=== PATIENT | female | born 1995 | race Caucasian/White ===

== ENCOUNTER 2017-11-03 19:13 | Emergency (ER) | payer SELFPAY ==
[2017-11-03 19:19] VITALS: BP 126/79; PULSE 85; RESP 16; TEMP 36.6; O2SAT 98
--- NOTE | 2017-11-03 19:49 | ED.GENADUL_ITS ---
Disposition Clinical Impression: Migraine headache Disposition: HOME Condition: Improving Instructions: Migraine Headache (ED) Additional Instructions: Feel free to return to the emergency department for any new or significant worsening of symptoms. This may include fever, neurological changes, severe headache or change in your conditions that differ from your typical migraine headaches. It may be helpful to keep a headache journal and track foods that you H prior to headache or activities that you are performing that preceded the onset of your migraines. Referrals: NONE,NONE [Primary Care Provider] - (Care management will assist in establishing a primary care provider for you to follow-up with in the next 1-2 weeks for recheck of your migraine headaches and further care.) Medical Decision Making - Medical Decision Making Patient presenting to the emergency department for chief complaint of migraine headache. Patient has taken her normal abortive medication which was not effective this evening. Patient denies any change or difference in pattern from previous migraine headaches. Patient denies any fever chills, or cold- like symptoms associated with her headache. Patient has no findings to suggest meningitis, cavernous sinus thrombosis, and does not state worst headache of her life so doubt subarachnoid hemorrhage. Given that this is patient's typical migraine pattern I feel that symptomatic treatment alone is sufficient and that labs or imaging is not required at this time. Patient given 1 L normal saline, ketorolac, Compazine and Benadryl. Plan to reassess after treatment. After patient received medication and fluids she stated that her symptoms had improved but not fully resolved. Patient did state that she still did have a mild headache but felt like she would rather go home and rest. Given that patient has no new or worsening symptoms and otherwise has her typical migraine headache I feel that this is appropriate. Patient did state that she did not have a primary care provider and so she was placed upon the list for a primary care follow-up and PCP establishment in the next 1-2 weeks. Patient was encouraged to keep a headache journal to see if there are any triggers causing her weekly headaches. Patient encouraged to return for any new or worsening condition. After discussion of diagnosis and plan of care with patient patient agreed and stated no further needs, questions, or concerns at this time. History of Present Illness - General Chief complaint: Headache Stated complaint: MIGRAINE Time Seen by Provider: 11/03/17 19:16 Source: patient, RN notes reviewed, old records reviewed Mode of arrival: ambulatory Limitations: no limitations - History of Present Illness Initial comments: Patient reports earlier this morning she woke up having a migraine headache. She took some of her Excedrin Migraine headache medication which helped relieve her symptoms. Then throughout the course the day her headache has returned and worsened. She states some phono and photophobia and sharp stabbing type sensations on the right side of her face which she describes as typical of her normal migraine headaches that she gets on a weekly basis. Patient states some nausea but denies any vomiting, patient denies fever, vision changes, neurological deficits. Onset/Timin -: hour(s) Location: head Severity scale (1-10): 6 Quality: sharp Consistency: constant Improves with: none Worsens with: none Associated Symptoms: denies other symptoms Treatments Prior to Arrival: other (Excedrin Migraine around 4:30 PM) - Related Data Acetaminophen [Tylenol] 650 mg PO Q4H PRN PRN tab 10/05/15 Ibuprofen [Motrin] 600 mg PO Q6H PRN PRN #60 tab 10/05/15 Allergies Allergy/AdvReac Type Severity Reaction Status Date / Time cinnamon [Cinnamon] Allergy Severe Anaphylaxsi Unverified 11/03/17 19:26 s latex Allergy Severe RASH ALL Unverified 11/03/17 19:26 OVER BODY Review of Systems Constitutional: denies: chills, fever, malaise Eyes: as per HPI, other (Photophobia). denies: vision change ENT: as per HPI, other (Phonophobia). denies: throat pain, congestion Respiratory: denies: cough, shortness of breath Cardiovascular: denies: chest pain, palpitations, syncope Musculoskeletal: denies: joint swelling Skin: denies: rash Neurological: headache. denies: weakness, numbness, paresthesias, confusion, abnormal gait Past Medical History - Past Medical History Medical history: GERD uti Surgical history: no surgical history LMP comments: current. denies: - Social History Smoking status: never smoker Alcohol use: none Drug use: none General Exam - General Limitations: no limitations General appearance: alert, in no apparent distress - Head Head exam: Present: atraumatic, normocephalic, normal inspection - Eye Eye exam: Present: normal apperance, PERRL, EOMI. Absent: scleral icterus, conjunctival injection, nystagmus, periorbital swelling Pupils: Present: normal accommodation - ENT ENT exam: Present: normal orophraynx, mucous membranes moist, TM's normal bilaterally, normal external ear exam - Neck Neck exam: Present: normal inspection, full ROM. Absent: meningismus, lymphadenopathy - Respiratory Respiratory exam: Present: normal lung sounds bilaterally, respiratory distress. Absent: wheezes, rales, rhonchi, stridor - Cardiovascular Cardiovascular Exam: Present: regular rate, normal rhythm, normal heart sounds - Neurological Exam Neurological exam: Present: alert, oriented X3, CN II-XII intact, normal gait. Absent: altered, motor sensory deficit - Skin Skin exam: Present: warm, dry. Absent: cyanosis, diaphoretic, pallor, mottled Course Vital Signs - 24 hr 11/03/18 19:19 Temperature 36.6 C Pulse 85 Respiratory 16 Rate Blood Pressure 126/79 Pulse Oximetry 98
[2017-11-03] MEDS: Normal Saline 1,000 ML 1000 ML IV (19:54)
[2017-11-03] MEDS: Ketorolac 30 MG/ML VIAL IVP (19:55)
[2017-11-03] MEDS: Prochlorperazine 10 MG/2 ML VIAL IVP (19:55)
[2017-11-03] MEDS: diphenhydrAMINE 50 MG/ML VIAL 25 MG IVP (19:56)
[2017-11-03] MEDS: Normal Saline Flush 10 ML SYR IVP (19:57)
[2017-11-03] MEDS: Normal Saline 50 ML (19:57)
[2017-11-03 21:02] VITALS: BP 107/75; PULSE 72; RESP 16; O2SAT 98
--- NOTE | 2017-11-04 11:36 | PDOC.ERCMPRO ---
Care Management Progress Note 11/04-Alirio MACHINE FUR CLEANER requested assistance with a PCP f/u in 1-2 weeks for recurrent migraines. This CM had tried to set up Gypsy with Fadi Mendez at [facility] on 07/21/17 but Gypsy did not respond to the voice mail that [facility] left for her. It also shows on record that back in 2014 she might of been a patient of Dr. Graham'celine at [facility]. This CM called Gypsy and could not leave a message as her voice mail is full.
--- NOTE | 2017-11-04 11:40 | CMPROGNOTE_ITS ---
Care Management Progress Note 11/04-Alirio CORROSION ENGINEER requested assistance with a PCP f/u in 1-2 weeks for recurrent migraines. This CM had tried to set up Gypsy with Fadi Mendez at [facility] on 07/21/17 but Gypsy did not respond to the voice mail that [facility] left for her. It also shows on record that back in 2014 she might of been a patient of Dr. Graham 'celine at [facility]. This CM called Gypsy and could not leave a message as her voice mail is full.
== END 2017-11-03 21:01 | disposition home or self-care (01) ==
PROVIDERS: Emergency Provider Physician Assistant
DX: G43.909 Migraine, unspecified, not intractable, without status migrainosus (principal)
CPT/HCPCS: 96361; 96374; 96375; 99284; J0780; J1200; J1885

== ENCOUNTER 2018-05-04 20:32 | Emergency (ER) | payer SELFPAY ==
[2018-05-04 20:43] VITALS: BP 119/76; PULSE 112; RESP 16; TEMP 36.9; O2SAT 100
[2018-05-04] MEDS: Ondansetron O.D.T. 4 MG TABEF PO (21:03)
--- NOTE | 2018-05-04 21:03 | ED.GENADUL_ITS ---
Discharge Plan Disposition Patient Disposition: HOME Condition: Stable Discharge Details Chief Complaint: Abd Prob Clinical Impression: Nausea and vomiting during Primary Care Provider: None,None ED Provider: Jarod Wyman Home Meds and New Rx's Prescriptions: New ondansetron 4 mg tablet,disintegrating 4 mg PO QID PRN (Reason: nausea and vomiting) Qty: 30 RF: 0 Continued Plus (calcium carb) 27 mg iron- 1 mg tablet 1 tab PO DAILY Qty: 90 RF: 2 acetaminophen [Tylenol] 325 MG tablet 650 mg PO Q4H PRN PRNRF: 0 Discharge Instructions Instructions: Acute Nausea and Vomiting (ED) Additional Instructions: if symptoms continue next week see your primary care provider or obgyn provider if you feel you are having persistent vomit despite the medication or severe abdominal pain return to the emergency department Stand Alone Forms: Work Release Medical Decision Making 22 yo female at 8 weeks per pt who comes in with cc of n/v for 5 days and doesn't feel she can go to work due to this. She has had loose stools as well. Denies recent travel or foods. Denies abdominal pain, vaginal bleedding or d/c. She has no abdominal tenderness on exam or distention and so doubt sbo or other surgical pathology and do not feel imaging indicated. She appears well hydrated so do not feel IVF or lab work indicated at this time. I disucssed risks vs benefits of zofran and she would prefer to have zofran to use as needed. She will f/u with her obgyn and return precautions given Differential Diagnosis hyperemesis, gastroenteritis HPI General Mode of arrival: ambulatory . Date/Time Provider Initiated Documentation: 05/04/18 20:33 . Limitations to Documentation: no limitations . Information obtained by: patient . History of Present Illness 22 year old F presents to the emergency department with the chief complaint of nausea and vomit, described as moderate, Patient reports no radiation. Patient started experiencing this day(s) (5) and it has been constant. No relieving factors improve symptom(s), No exacerbating factors reported . Patient notes other (diarrhea). Patient did receive the following treatments prior to arrival, none Related Data Home Medications Medication Instructions Recorded Confirmed acetaminophen [Tylenol] 650 mg PO Q4H PRN PRN tab 10/05/15 05/04/18 vitamin with calcium 1 tab PO DAILY #90 tab 04/25/18 05/04/18 no.72-iron 27 mg-folic acid 1 mg tablet ondansetron 4 mg PO QID PRN #30 tab 05/04/18 Previous Rx's Medication Instructions Recorded acetaminophen [Tylenol] 650 mg PO Q4H PRN PRN tab 10/05/15 vitamin with calcium 1 tab PO DAILY #90 tab 04/25/18 no.72-iron 27 mg-folic acid 1 mg tablet ondansetron 4 mg PO QID PRN #30 tab 05/04/18 Allergies Allergy/AdvReac Type Severity Reaction Status Date / Time cinnamon [Cinnamon] Allergy Severe Anaphylaxsi Unverified 05/04/18 20:55 s latex Allergy Severe RASH ALL Unverified 05/04/18 20:55 OVER BODY Review of Systems Review of Systems All systems reviewed & are unremarkable except as noted in HPI and below Constitutional Denies chills and Denies fever(s) Cardiovascular Denies chest pain and Denies dyspnea Respiratory Denies cough and Denies dyspnea Gastrointestinal Denies abdominal pain Genitourinary Denies dysuria Musculoskeletal Denies joint swelling Integumentary/Breasts Denies rash Psychiatric Denies depression PFSH Medical History Hx: UTI (urinary tract infection) Pyelonephritis Family History Other Bipolar disorder Mother Mental disorder Father Diabetes Other Multiple endocrine neoplasia (MEN) type II Social History Smoking and Tabacco status: Never Exam Const General: no acute distress Orientation: alert HENMT Head: normal to inspection Ears: external ears normal General nose exam: external nose normal Mouth: moist mucous membranes Eyes General: appearance normal, both eyes and all related structures Neck Neck: normal visual inspection Resp Effort & Inspection: normal respiratory effort and able to speak in complete sentences Cardio Rate: regular rate GI Inspection: normal to inspection and no abdominal wall ecchymosis Skin General skin exam: no rashes or lesions noted Neuro General: alert and oriented x3 Extrem General: normal to inspection Psych Mental Status: mental status grossly normal
== END 2018-05-04 21:10 | disposition home or self-care (01) ==
PROVIDERS: Emergency Provider Emergency Medicine
DX: O21.9 Vomiting of pregnancy, unspecified (principal); Z3A.08 8 weeks gestation of pregnancy
CPT/HCPCS: 99283

== ENCOUNTER 2018-05-24 16:30 | Outpatient (REF) | payer SELFPAY ==
--- NOTE | 2018-05-24 15:10 | PAPFT_PTH ---
PATIENT: Gypsy Garcia LOC: [facility] U#:[id number] AGE/SX: 22/F ROOM: RE05/24/[address]: Asaf Castro RN : 1995 BED: DIS: 05/24/2018 SPEC #: [id number] RECD: 05/25/18 12:44 STATUS: JOANNE RELj #: [id number] RADHA: 05/24/18 15:[address]: Asaf Castro DEPT: [facility] Cytology RECD BY: Patricia Davidson ENTERED: 05/25/18 12:45 SP TYPE: PAPFT OTHR DR: None Tissues: 1 - CX/ENDOCX FOR PAP SMEARS Procedures: PAP THIN PREP/UVM Screening HPV DNA PROBE Comments: [id number]
[2018-05-25 10:51] LABS: *AMPHETAMINES SCREEN URINE Negative (Negative); *BARBITURATES SCREEN URINE Negative (Negative); *BENZODIAZEPINES SCREEN URINE Negative (Negative); Cannabinoids THC Negative (Negative); Cocaine Screen,Urine Negative (Negative); METHADONE URINE SCREEN Negative (Negative); OPIATES URINE SCREEN Negative (Negative)
[2018-05-25 10:54] LABS: Tricyclic Antidepressants Negative (Negative)
[2018-05-26 13:44] LABS: GC Result Negative; Specimen Description CERVIX
[2018-05-26 14:22] LABS: Chlamydia Result Positive
[2018-05-29 13:22] LABS: Buprenorphine Negative; Norbuprenorphine Negative
== END 2018-05-24 16:50 ==
LOC: LBN 16:30
PROVIDERS: Visit Provider Advanced Practice Midwife
DX: Z34.91 Encounter for supervision of normal pregnancy, unspecified, first trimester (principal); Z11.3 Encounter for screening for infections with a predominantly sexual mode of transmission; Z12.4 Encounter for screening for malignant neoplasm of cervix
CPT/HCPCS: 80307; 87491; 87591; 88142; 87086; 87624

== ENCOUNTER 2018-08-17 14:04 | Outpatient (REF) | payer SELFPAY ==
[2018-08-18 13:46] LABS: Chlamydia Result Negative; Specimen Description URINE
== END 2018-08-17 14:24 ==
LOC: LBN 14:04
PROVIDERS: Visit Provider Advanced Practice Midwife
DX: Z34.90 Encounter for supervision of normal pregnancy, unspecified, unspecified trimester (principal); Z11.3 Encounter for screening for infections with a predominantly sexual mode of transmission
CPT/HCPCS: 87491

== ENCOUNTER 2018-08-17 15:50 | Outpatient (CLI) | payer SELFPAY ==
[2018-08-17 16:31] LABS: Abs Immature Grans 0.06 k/cumm (0.0-0.09); Absolute Basophil Count 0.01 k/cumm (0.0-0.2); Absolute Lymphocyte Count 2.31 k/cumm (1.2-3.4); Absolute Monocyte Count 0.85 k/cumm (0.11-0.7); Absolute Neutrophil Count 10.68 k/cumm (1.2-6.7); Basophils % 0.1; Eosinophils % 0.6; HCT 36.4 % (36.0-46.0); HGB 12.3 g/dL (12.0-15.5); Immature Grans % 0.4; Lymphocytes % 16.5; Mean Corp. HGB Concentration 33.8 g/dL (32.0-36.0); Mean Corpuscular Hemoglobin 29.6 pg (27.0-33.0); Mean Corpuscular Volume 87.5 fL (80-95); Mean Platelet Volume 11.2 fL (8.0-11.0); Monocytes % 6.1; Neutrophils % 76.3; Platelet Count 239 x1000/uL (130-400); RBC 4.16 m/cumm (4.00-5.20); RBC Distribution Width 13.4 % (11.7-14.6)
[2018-08-17 16:35] LABS: Absolute Eosinophil Count 0.08 k/cumm (0.0-0.7)
[2018-08-17 16:48] LABS: Glucose,1 Hr (Glucola) 102 mg/dL (80-140)
[2018-08-21 10:07] LABS: HIV-1/2 Ag & Ab Screen Negative (NEGAT)
[2018-08-21 10:08] LABS: Hepatitis C Ab w Rflx HCV PCR Negative (NEGAT)
[2018-08-21 10:19] LABS: Hepatitis B Surface Ag Negative (NEGAT)
[2018-08-21 11:21] LABS: Syphilis Serology (RPR) Negative (Negative); Varicella IgG Antibody Positive
[2018-08-21 13:36] LABS: Rubella IgG Ab (UVM) Negative
== END 2018-08-17 16:10 ==
PROVIDERS: Visit Provider Advanced Practice Midwife
DX: Z34.91 Encounter for supervision of normal pregnancy, unspecified, first trimester (principal); Z11.4 Encounter for screening for human immunodeficiency virus [HIV]; Z11.59 Encounter for screening for other viral diseases; Z01.84 Encounter for antibody response examination
CPT/HCPCS: 36415; 80055; 82950; 86787; 86803; 86850; 86900; 86901; 87340; 87389; 84443; 86592; 86762

== ENCOUNTER 2018-08-29 01:19 | Outpatient (CLI) | payer SELFPAY ==
--- NOTE | 2018-08-29 13:44 | DI.US_ITS ---
Predicted Gestational Age: Indication/History: SURVEY,Z34.90 23.3 Wks Range: 22.3 to 24.3 Prior US done on: Determined by: First US LMP History EDC by prior US: 12/23/18 For multiple gestations: Baby PLACENTA: Grade: 0-I Location: Anterior X Posterior PRESENTATION: RT LT X LOW LYING PREVIA Cephalic X Trans (Head RT LT ) Varied Breech BIOMETRY: Anatomy Identified: BPD: 60 mm 24.3 wks 4 chamber Heart X Heart Rate 162 BPM HC: 224 mm 24.3 wks LVOT X Post Fossa X AC: 195 mm 24.1 wks RVOT X Ventricles X FL: 43 mm 24 wks Stomach X Nose NS Bladder X Lips NS Cisterna Magna: 10 mm CI: 82 Kidneys X Palate NS Cerebellum: 2.51 mm 3 vessel cord X Spine X EFW: grms % Cord Insertion X NS= not seen Composite Age (US) 24.2 wks Many abnormalities cannot be diagnosed. A normal exam does not exclude congenital abnormality. EDC by US 12/17/18 Amniotic Fluid Index: Normal COMMENTS: RUQ: LUQ: RLQ: LLQ: Total: cm Biophysical Profile: Score 0/2 MOUNIKA (>2cm) Respirations (>30 sec) Body flexion/extension Extremity flexion/extension TOTAL SCORE OB ultrasound was performed utilizing second trimester protocol. biometry is consistent with a gestational age of 24 weeks 2 days and EDC of 12/17/18. Placenta is anterior with no evidence of placenta previa. There is visually a normal quantity of amniotic fluid. anomaly screen is within normal as per OB ultrasound worksheet. Please note that there was incomplete visualization of facial structures and the patient is scheduled to return 09/06 for additional scanning.
== END 2018-08-29 01:39 ==
PROVIDERS: Visit Provider Advanced Practice Midwife
DX: Z34.92 Encounter for supervision of normal pregnancy, unspecified, second trimester (principal)
CPT/HCPCS: 76805

== ENCOUNTER 2018-09-06 00:51 | Outpatient (CLI) | payer SELFPAY ==
--- NOTE | 2018-09-06 15:48 | DI.US_ITS ---
SYMPTOM/DIAGNOSIS: TO COMPLETE SURVEY, TO VISUALIZE FACIAL STRUCTURES. OB ULTRASOUND: Comparison is made with 29 August 2018 The fetus is in cephalic position. The placenta is anterior. The face was better visualized on today's exam, however, the palate was only partially visualized. The amount of amniotic fluid appears visually normal. IMPRESSION: No facial deformities are seen. Predicted Gestational Age: Indication/History: 24 +4 Wks Range: to Prior US done on: Determined by: First US LMP History EDC by prior US: 12/23/18 For multiple gestations: Baby PLACENTA: Grade: II Location: XX Anterior PRESENTATION: RT LT LOW LYING PREVIA Cephalic XX Trans (Head RT LT ) Varied Breech BIOMETRY: Anatomy Identified: BPD: mm wks 4 chamber Heart Heart Rate 155 BPM HC: mm wks LVOT Post Fossa AC: mm wks RVOT Ventricles FL: mm wks Stomach Nose XX Bladder Lips XX Cisterna Magna: mm CI: Kidneys Palate Cerebellum: mm 3 vessel cord Spine EFW: grms % Cord Insertion NS= not seen Composite Age (US) wks Many abnormalities cannot be diagnosed. A normal exam does not exclude congenital abnormality. EDC by US Amniotic Fluid Index: Oligo Normal Polyhydramnios COMMENTS: RUQ: LUQ: RLQ: LLQ: Total: cm Biophysical Profile: Score 0/2 MOUNIKA (>2cm) Respirations (>30 sec) Body flexion/extension Extremity flexion/extension TOTAL SCORE
== END 2018-09-06 01:11 ==
PROVIDERS: Visit Provider Advanced Practice Midwife
DX: Z34.92 Encounter for supervision of normal pregnancy, unspecified, second trimester (principal); Z36.2 Encounter for other antenatal screening follow-up
CPT/HCPCS: 76815

== ENCOUNTER 2018-09-16 14:41 | Observation (INO) | payer MEDICAID, SELFPAY ==
[2018-09-16] VITALS (28 sets, daily range): BP systolic 95–121; BP diastolic 50–78; PULSE 75–130; RESP 16–44; TEMP 37; O2SAT 96–98
--- NOTE | 2018-09-16 15:28 | ED.GENADUL_ITS ---
Discharge Plan Disposition Patient Disposition: [facility] INPATIENT Condition: Improving Discharge Details Chief Complaint: Dizzy/Sync Clinical Impression: Dehydration Admit Date/Time: 09/16/18 17:26 Admit Provider: Ambar Baker Attending Provider: Ambar Baker Primary Care Provider: None,None ED Provider: Gregoria Ambrocio Discharge Instructions Activity:: Activity as Tolerated Activity:: Activity as Tolerated Equipment/Supplies:: No Equipment Needed Diet:: Normal Diet Discharge Orders Discharge Orders: Discharge Order (Routine); Ordered 09/16/18 Ordered By: Ambar Baker Discharge Data Discharge Date/Time-TO BE ENTERED AT DEPARTURE: 09/16/18 17:35 Medical Decision Making <Rivera Arenas NP - Last Filed: 09/17/18 08:19> Patient presenting to the emergency department for chief complaint of dizziness when standing up. Patient is approximately 26 weeks and states that this is been occurring over the past week with worsening over the past couple days. 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 Patient does state some mild back pain but states that this is her norm. Patient denies any vaginal discharge, loss of fluids, pelvic or abdominal pain. Physical exam shows mild tachycardia, appropriate inspection of the abdomen for gestational age, positive movements, staff combat information center officer reporting heart tones in 150s, otherwise unremarkable exam. Concern for possible fluid shift, dehydration, possible UTI, or anemia. Plan to check labs, give IV fluids, perform orthostatic vital signs, and reassess. <ZACHARY Eugene - Last Filed: 09/19/18 08:20> Care was transitioned to myself from Alirio Arenas NP, with labs pending the patient endorsing lightheadedness with movement x1 week. Patient is 26 weeks gestation, G4, P2. Patient denies any abdominal pain, vaginal discharge. No cr amping. Reviewed the labs, patient does have a white count of 13 which is baseline at this time, hemoglobin is 11.3, patient does not appear to be dehydrated with. Does have trace leukocyte esterase in her urinalysis with few epithelial cells, negative effect. Consulted with Aayush Baker, with the midwifery service, and discussed the patient's concerns and course thus far this time. Patient is feeling improved after 1 L of fluids and believes this is associated with the heat. She reports that he typically makes her nauseated and she is been hydrating less than typical. States that he can also make her feel dizzy. Ambar recommended the patient be brought to the obstetrics unit for monitoring. heart rate at the time the patient first presented was in the 150s per EQUIPMENT PROCESSOR report. Discussed plan for monitoring, patient is in agreement. Patient brought to birthing center for continued monitoring HPI <Rivera Arenas NP - Last Filed: 09/17/18 08:19> General Mode of arrival: ambulatory . Date/Time Provider Initiated Documentation: 09/16/18 14:50 . Limitations to Documentation: no limitations . Information obtained by: patient . History of Present Illness 23 year old F presents to the emergency department with the chief complaint of dizziness with position change, and is localized to the head. Patient reports no radiation. Patient started experiencing this week(s) (1) and it has been other (with position change (laying to sitting, sitting to standing)). Rest improves symptom(s), Movement worsens symptoms . Patient notes no other symptoms.. Related Data Home Medications Medication Instructions Recorded Confirmed acetaminophen [Tylenol] 650 mg PO Q4H PRN PRN tab 10/05/15 09/16/18 vitamin with calcium 1 tab PO DAILY #90 tab 04/25/18 09/16/18 no.72-iron 27 mg-folic acid 1 mg tablet ondansetron 4 mg PO QID PRN #30 tab 05/04/18 09/16/18 Previous Rx's Medication Instructions Recorded acetaminophen [Tylenol] 650 mg PO Q4H PRN PRN tab 10/05/15 vitamin with calcium 1 tab PO DAILY #90 tab 04/25/18 no.72-iron 27 mg-folic acid 1 mg tablet ondansetron 4 mg PO QID PRN #30 tab 05/04/18 Allergies Allergy/AdvReac Type Severity Reaction Status Date / Time cinnamon [Cinnamon] Allergy Severe Anaphylaxsi Unverified 09/16/18 15:04 s latex Allergy Severe RASH ALL Unverified 09/16/18 15:04 OVER BODY General Stated Complaint: Dizzy/Sync ARELI: 2 Review of Systems <Rivera Arenas NP - Last Filed: 07/14/19 08:19> Constitutional Reports system reviewed and no additional complaints, except as docu, Denies fever(s), Reports headache(s) (per usual with heat) and Denies weakness ENT Reports headache(s) (per usual with heat) Comments: c/o weird feeling in ears with dizziness Cardiovascular Denies chest pain and Reports palpitations (only with dizziness) Gastrointestinal Reports diarrhea (a few times, normal reaction to hot weather) and Reports vomiting (per usual with ) Genitourinary Denies abnormal vaginal bleeding, Denies difficulty voiding, Denies dysuria and Denies vaginal discharge Musculoskeletal Reports back pain Neurologic Reports headache(s) (per usual with heat) and Denies weakness Endocrine Reports palpitations (only with dizziness) PFSH <Rivera Arenas NP - Last Filed: 09/17/18 08:19> Social History Smoking/Tobacco Use Status: Never Alcohol Intake: never Drug use: Never Substance use type: does not use Do you feel safe at home: Yes Do you feel safe in your relationship?: Yes Female Reproductive History Menstrual Age of Menarche: 13 Duration of menses: 3-5 days control method: other (nuva ring yet became lax with it) History History 2 4 Para 2 Hx # Term Pregnancies 2 Multiple births 0 Hx # Pregnancies 0 Ectopic pregnancies 0 AB induced 0 Hx Number of Living Children 2 AB spontaneous 1 Past Pregnancies Del. Date GA/Weeks # Outcome Route Wgt Sex Labor Lgth Anesthes ia Location Prov Complic 12/12/12 41 No Successful vaginal 4.479 kg Male 32 hrs regional 10/03/15 39 No Successful vaginal 3.827 kg Female [address] rashaad zhong 07/18/16 7 No Unsuccessful vaginal Delivery Date: 12/12/12 No notes to display Delivery Date: 10/03/15 On 05/24/18 @ 14:28 [facility] retained placenta, manual removal, w/ increased bleeding ? w/o pph, transfusion. Delivery Date: 07/18/16 On 05/24/18 @ 14:29 [facility]SAF [facility]NA w/o d&C completed at home w/o c/o. Exam <Rivera Arenas NP - Last Filed: 09/17/18 08:19> Const General: cooperative, healthy appearing, comfortable, no acute distress, well developed and well groomed Nutritional Appearance: average body habitus Orientation: alert and oriented x3 Resp Effort & Inspection: normal respiratory effort and able to speak in complete sentences Auscultation: clear to auscultation bilaterally Cardio Rate: tachycardic Rhythm: regular rhythm Heart Sounds: S1 normal, S2 normal, no click, no gallops, no murmurs and no rubs GI Inspection: normal to inspection and other (Gravid with appropriate size) Palpation: soft, not firm, no guarding and nontender Auscultation: normal bowel sounds Back/Spine/Pelvis Back: no CVA tenderness Skin General skin exam: no rashes or lesions noted Extrem General: normal capillary refill, no clubbing, cyanosis or edema and no pedal edema Course <Rivera Arenas NP - Last Filed: 09/17/18 08:19> Vital Signs Pulse 112 H 09/16/18 14:58 Respiratory Rate 22 09/16/18 14:58 Blood Pressure 116/78 09/16/18 14:58 Pulse Oximetry 97 09/16/18 14:58 Pulse 107 H 09/16/18 15:08 Respiratory Rate 20 09/16/18 15:06 Respiratory Effort 09/16/18 15:06 Respiratory Depth Normal 09/16/18 15:06 Blood Pressure 105/58 L 09/16/18 15:08 Blood Pressure Position Supine 09/16/18 14:58 Pulse Oximetry 97 09/16/18 14:58 Oxygen Delivery Method Room Air 09/16/18 14:58 Oxygen Flow Rate 0 09/16/18 14:58 Pain Level 3 09/16/18 14:58 Sign Out <Rivera Arenas NP - Last Filed: 09/17/18 08:19> Sign Out Data: Sign Out Comment: Patient signed out to ZACHARY Rodgers pending lab results, and reassessment after fluids for concern of dehydration versus anemia Last updated by iRvera Arenas NP at 09/16/18 16:00
[2018-09-16] MEDS: Normal Saline 1,000 ML 1000 ML IV (15:40)
[2018-09-16 15:47] LABS: Abs Immature Grans 0.06 k/cumm (0.0-0.09); Absolute Basophil Count 0.01 k/cumm (0.0-0.2); Absolute Eosinophil Count 0.01 k/cumm (0.0-0.7); Absolute Monocyte Count 0.86 k/cumm (0.11-0.7); Absolute Neutrophil Count 10.54 k/cumm (1.2-6.7); Basophils % 0.1; Eosinophils % 0.1; HCT 34.9 % (36.0-46.0); HGB 11.3 g/dL (12.0-15.5); Immature Grans % 0.4; Lymphocytes % 14.2; Mean Corp. HGB Concentration 32.4 g/dL (32.0-36.0); Mean Corpuscular Hemoglobin 27.5 pg (27.0-33.0); Mean Corpuscular Volume 84.9 fL (80-95); Mean Platelet Volume 10.8 fL (8.0-11.0); Monocytes % 6.4; Neutrophils % 78.8; Platelet Count 234 x1000/uL (130-400); RBC 4.11 m/cumm (4.00-5.20); RBC Distribution Width 13.3 % (11.7-14.6); White Blood Cell Count 13.38 k/cumm (4.4-10.8)
[2018-09-16 15:56] LABS: Bilirubin Negative (Negative); Blood Negative (Negative); Clarity Clear (Clear); Glucose Negative (Negative); Ketones Negative (Negative); Leukocyte Esterase Trace (Negative); Nitrite Negative (Negative); Urobilinogen 0.2 EU/dL (Up TO 0.2)
[2018-09-16 16:05] LABS: ALT 21 U/L (12-78); AST 15 U/L (15-37); Albumin 2.4 g/dL (3.4-5.0); Alkaline Phosphatase 94 U/L (46-116); BUN 8 mg/dL (7-18); Bilirubin, Total 0.2 mg/dL (0.2-1.0); CREATININE 0.51 mg/dL (0.55-1.02); Calcium 9.1 mg/dL (8.5-10.1); Chloride 103 mmol/L (98-107); Glucose 74 mg/dL (70-100); Potassium 3.6 mmol/L (3.5-5.1); Sodium 138 mmol/L (136-145); Total Protein 7.2 g/dL (6.4-8.2)
[2018-09-16 16:23] LABS: Bacteria Negative HPF (Negative); C & S Indicated? Yes; Casts Negative LPF (Negative); Crystals Negative HPF (Negative); Epithelial Cells Few HPF (Negative); Mucus Negative (Negative); RBC 0-2 (0-2); WBC 0-2 HPF (0-5)
== END 2018-09-16 18:30 | disposition home or self-care (01) ==
LOC: ER 16:57 → BCD 17:26 → OBS 18:05
PROVIDERS: Nurse Practitioner Family; Admitting Provider Advanced Practice Midwife; Emergency Provider Physician Assistant; Visit Provider Advanced Practice Midwife
DX: O26.892 Other specified pregnancy related conditions, second trimester (principal); E86.0 Dehydration; O09.32 Supervision of pregnancy with insufficient antenatal care, second trimester; Z3A.26 26 weeks gestation of pregnancy
CPT/HCPCS: 36415; 80053; 96360; 99285; 59025; 81003; 81015; 85025; 87086; 99284; G0378

== ENCOUNTER 2018-10-23 11:05 | Outpatient (CLI) | payer MEDICAID, SELFPAY ==
[2018-10-23 15:07] LABS: HCT 32.9 % (36.0-46.0); HGB 10.6 g/dL (12.0-15.5); Mean Corp. HGB Concentration 32.2 g/dL (32.0-36.0); Mean Corpuscular Hemoglobin 26.4 pg (27.0-33.0); Mean Platelet Volume 10.8 fL (8.0-11.0); Platelet Count 252 x1000/uL (130-400); RBC 4.01 m/cumm (4.00-5.20); RBC Distribution Width 14.4 % (11.7-14.6); White Blood Cell Count 13.86 k/cumm (4.4-10.8)
[2018-10-23 15:29] LABS: Glucose,1 Hr (Glucola) 125 mg/dL (80-140)
== END 2018-10-23 11:25 ==
PROVIDERS: Advanced Practice Midwife; Visit Provider Advanced Practice Midwife
DX: Z34.93 Encounter for supervision of normal pregnancy, unspecified, third trimester (principal)
CPT/HCPCS: 36415; 82950; 85027

== ENCOUNTER 2018-10-30 15:15 | Outpatient (CLI) | payer MEDICAID, SELFPAY ==
[2018-10-30 15:51] LABS: HCT 35.5 % (36.0-46.0); HGB 11.3 g/dL (12.0-15.5); Mean Corp. HGB Concentration 31.8 g/dL (32.0-36.0); Mean Corpuscular Hemoglobin 26.1 pg (27.0-33.0); Mean Platelet Volume 10.8 fL (8.0-11.0); Platelet Count 268 x1000/uL (130-400); RBC 4.33 m/cumm (4.00-5.20); RBC Distribution Width 14.9 % (11.7-14.6); White Blood Cell Count 12.18 k/cumm (4.4-10.8)
[2018-10-30 16:29] LABS: PROTEIN 17.9 mg/dL
[2018-10-30 16:35] LABS: COMMENT (LAB VIEW ONLY) 98.73 mg/dL; Prot/Crea Ur Ratio 0.18
[2018-10-30 16:53] LABS: ALT 25 U/L (14-59); AST 18 U/L (15-37); Albumin 2.4 g/dL (3.4-5.0); Alkaline Phosphatase 127 U/L (46-116); Anion Gap 11.1 mmol/L (3-11); BUN 7 mg/dL (7-18); Bilirubin, Total 0.3 mg/dL (0.2-1.0); CO2 23.9 mmol/L (21.0-32.0); CREATININE 0.61 mg/dL (0.55-1.02); Calcium 8.8 mg/dL (8.5-10.1); Chloride 103 mmol/L (98-107); Glucose 77 mg/dL (70-100); Potassium 4.1 mmol/L (3.5-5.1); Sodium 138 mmol/L (136-145); Total Protein 6.9 g/dL (6.4-8.2)
== END 2018-10-30 15:35 ==
PROVIDERS: Visit Provider Advanced Practice Midwife
DX: O14.93 Unspecified pre-eclampsia, third trimester
CPT/HCPCS: 36415; 80053; 85027; 82565; 84156; 84550

== ENCOUNTER 2018-12-05 10:37 | Outpatient (CLI) | payer MEDICAID, SELFPAY ==
[2018-12-05 11:07] LABS: Glucose,1 Hr (Glucola) 142 mg/dL (80-140)
== END 2018-12-05 10:57 ==
PROVIDERS: Visit Provider Advanced Practice Midwife
DX: Z34.93 Encounter for supervision of normal pregnancy, unspecified, third trimester (principal)
CPT/HCPCS: 36415; 82950

== ENCOUNTER 2018-12-05 12:24 | Outpatient (REF) | payer MEDICAID, SELFPAY ==
[2018-12-05 14:21] LABS: *AMPHETAMINES SCREEN URINE Negative (Negative); *BARBITURATES SCREEN URINE Negative (Negative); *BENZODIAZEPINES SCREEN URINE Negative (Negative); Cannabinoids THC Negative (Negative); Cocaine Screen,Urine Negative (Negative); METHADONE URINE SCREEN Negative (Negative); OPIATES URINE SCREEN Negative (Negative)
[2018-12-05 14:23] LABS: Tricyclic Antidepressants Negative (Negative)
[2018-12-06 13:57] LABS: Chlamydia Result Negative; Specimen Description URINE
== END 2018-12-05 12:44 ==
LOC: LBN 12:24
PROVIDERS: Visit Provider Advanced Practice Midwife
DX: Z34.93 Encounter for supervision of normal pregnancy, unspecified, third trimester (principal); Z36.85 Encounter for antenatal screening for Streptococcus B; Z11.3 Encounter for screening for infections with a predominantly sexual mode of transmission
CPT/HCPCS: 80307; 87491; 87081

== ENCOUNTER 2018-12-06 01:19 | Outpatient (CLI) | payer MEDICAID, SELFPAY ==
--- NOTE | 2018-12-06 09:40 | DI.US_ITS ---
EXAM: US OB MOUNIKA WEIGHT CLINICAL HISTORY: LGA fetus Z34.90 SUPERVISION NORMAL . TECHNIQUE: Ultrasound performed using standard protocol. COMPARISON: US OB f/u facial/lvot/rvot from 09/06/2018 FINDINGS: There is a single living intrauterine gestation. Estimated sonographic age is 38 weeks 3 days. This fetus is in the cephalic presentation. heart rate is 136 beats per minute. Amniotic fluid index is 15.8 cm. Visually the amniotic fluid appears within normal limits. The placenta is anterior without evidence of previa. Estimated weight is 3513 g. This is the 82 percentile. IMPRESSION: Single living intrauterine gestation. Estimated sonographic age is 38 weeks 3 days.
== END 2018-12-06 01:39 ==
PROVIDERS: Visit Provider Advanced Practice Midwife
DX: Z34.93 Encounter for supervision of normal pregnancy, unspecified, third trimester (principal)
CPT/HCPCS: 76816

== ENCOUNTER 2018-12-15 02:39 | Outpatient (CLI) | payer MEDICAID, SELFPAY ==
[2018-12-15 10:10] LABS: Glucose 1 Hour 160 mg/dL
[2018-12-15 13:08] LABS: Glucose 3 Hour 97 mg/dL
== END 2018-12-15 02:59 ==
PROVIDERS: Visit Provider Advanced Practice Midwife
DX: Z34.93 Encounter for supervision of normal pregnancy, unspecified, third trimester (principal)
CPT/HCPCS: 36410; 82951

== ENCOUNTER 2018-12-20 11:00 | Observation (INO) | payer MEDICAID, SELFPAY | END 2018-12-20 13:30 | disposition home or self-care (01) | LOC: OBS 13:14 | PROVIDERS: Admitting Provider Advanced Practice Midwife; Referring Provider Advanced Practice Midwife; Visit Provider Advanced Practice Midwife | DX: O9A.213 Injury, poisoning and certain other consequences of external causes complicating pregnancy, third trimester (principal); Z3A.39 39 weeks gestation of pregnancy; S39.91XA Unspecified injury of abdomen, initial encounter; W17.89XA Other fall from one level to another, initial encounter | CPT/HCPCS: G0378 ==

== ENCOUNTER 2018-12-26 21:38 | Inpatient (IN) | payer MEDICAID, SELFPAY ==
[2018-12-27 02:44] LABS: HCT 33.3 % (36.0-46.0); HGB 10.3 g/dL (12.0-15.5); Mean Corp. HGB Concentration 30.9 g/dL (32.0-36.0); Mean Corpuscular Hemoglobin 23.8 pg (27.0-33.0); Mean Corpuscular Volume 77.1 fL (80-95); Mean Platelet Volume 11.8 fL (8.0-11.0); Platelet Count 256 x1000/uL (130-400); RBC 4.32 m/cumm (4.00-5.20); RBC Distribution Width 17.5 % (11.7-14.6); White Blood Cell Count 13.76 k/cumm (4.4-10.8)
[2018-12-27] MEDS: FentaNYL/ROPIvacaine 2 mcg/ml and 0.1% 200 ML CADD Cassette EP (07:01)
[2018-12-27] MEDS: Lactated Ringers 1,000 ML 125 ML IV (13:31)
[2018-12-27] MEDS: Ibuprofen 600 MG TAB PO (21:09)
[2018-12-28] MEDS: Ibuprofen 600 MG TAB PO ×4 (04:55→21:10)
[2018-12-28 07:33] LABS: HCT 25.7 % (36.0-46.0); HGB 7.6 g/dL (12.0-15.5); Mean Corp. HGB Concentration 29.6 g/dL (32.0-36.0); Mean Corpuscular Hemoglobin 23.2 pg (27.0-33.0); Mean Corpuscular Volume 78.4 fL (80-95); Mean Platelet Volume 11.2 fL (8.0-11.0); Platelet Count 194 x1000/uL (130-400); RBC 3.28 m/cumm (4.00-5.20); RBC Distribution Width 17.5 % (11.7-14.6); White Blood Cell Count 13.38 k/cumm (4.4-10.8)
[2018-12-28] MEDS: Acetaminophen 325 MG TAB 650 MG PO ×3 (10:06→21:03)
[2018-12-28] MEDS: Measles, Mumps, & Rubella Vaccine 0.5 ML VIAL (15:06)
[2018-12-29] MEDS: Acetaminophen 325 MG TAB 650 MG PO ×2 (03:25→09:44)
[2018-12-29] MEDS: Ibuprofen 600 MG TAB PO ×2 (03:25→09:44)
[2018-12-29 09:15] LABS: HCT 27.6 % (36.0-46.0); HGB 8.3 g/dL (12.0-15.5); Mean Corp. HGB Concentration 30.1 g/dL (32.0-36.0); Mean Corpuscular Hemoglobin 23.7 pg (27.0-33.0); Mean Corpuscular Volume 78.9 fL (80-95); Mean Platelet Volume 10.3 fL (8.0-11.0); Platelet Count 223 x1000/uL (130-400); RBC Distribution Width 17.8 % (11.7-14.6); White Blood Cell Count 11.82 k/cumm (4.4-10.8)
== END 2018-12-29 11:35 | disposition home or self-care (01) | DRG 806 ==
PROVIDERS: Advanced Practice Midwife; Admitting Provider Advanced Practice Midwife; Visit Provider Advanced Practice Midwife
DX: O70.0 First degree perineal laceration during delivery (principal); O63.9 Long labor, unspecified; Z37.0 Single live birth; O62.1 Secondary uterine inertia; O73.1 Retained portions of placenta and membranes, without hemorrhage; O75.89 Other specified complications of labor and delivery; O99.62 Diseases of the digestive system complicating childbirth; Z3A.40 40 weeks gestation of pregnancy; K64.8 Other hemorrhoids; E86.0 Dehydration; R11.0 Nausea; Z23 Encounter for immunization
CPT/HCPCS: 36415; 85027; 86850; 86900; 86901; J3490

== ENCOUNTER 2019-01-03 01:43 | Outpatient (RCR) | payer MEDICAID, SELFPAY ==
[2018-12-29] MEDS: IRON SUCROSE COMPLEX 200 MG in Normal Saline 100 ML 440 MG IVPB (12:07)
[2018-12-29] MEDS: Normal Saline Flush 10 ML SYR IVP (12:08)
[2019-01-03] MEDS: Normal Saline Flush 10 ML SYR IVP (13:33)
[2019-01-03] MEDS: IRON SUCROSE COMPLEX 200 MG in Normal Saline 100 ML 440 MG IVPB (13:33)
== END 2019-01-04 23:59 | disposition home or self-care (01) ==
LOC: INF 01:43
PROVIDERS: Visit Provider Advanced Practice Midwife
DX: O99.013 Anemia complicating pregnancy, third trimester (principal)
CPT/HCPCS: 96365; J1756

== ENCOUNTER 2020-08-11 20:12 | Emergency (ER) | payer MEDICAID, SELFPAY ==
--- NOTE | 2020-08-11 20:36 | ED.GENADUL_ITS ---
Discharge Plan Disposition Patient Disposition: HOME Condition: Good Discharge Details Clinical Impression: Local reaction to insect sting, Tick bite Primary Care Provider: None,None ED Provider: Gregoria Ambrocio Home Meds and New Rx's Prescriptions: Continued melatonin 3 mg capsule 3 mg PO HS PRNRF: 0 multivitamin Capsule 1 cap PO DAILY RF: 0 sertraline 25 mg tablet 25 mg PO DAILY Qty: 30 RF: 1 acetaminophen [Tylenol] 325 MG tablet 650 mg PO Q4H PRN PRNRF: 0 Discharge Instructions Instructions: Tick Bite (ED) Additional Instructions: This appears most consistent with a local reaction from your tick bite. As it was a dog tick, we do not need to treat you for Lyme. However, I would like for you to rest, ice, elevate your toes to help with swelling. You may use Tylenol or ibuprofen to help with symptomatic management. You may try Benadryl at night to help with symptoms, Claritin during the daytime. You may try topical options such as hydrocortisone cream to help with symptomatic management. Our care managers will reach out to you regarding establishing local primary care. If you develop fever/chills, increased swelling, increased redness or the new/worsening symptoms please seek care urgently once again. Stand Alone Forms: Work Release Discharge Data Discharge Date/Time-TO BE ENTERED AT DEPARTURE: 08/11/20 21:08 Medical Decision Making Patient is a pleasant 25-year-old female presenting today with chief complaint of tick bite. She reports that she removed a dog tick yesterday and has had increased swelling and discomfort between the toes affected. Denies any fevers or chills. Reports that she often gets significant reactions to bug bites. On exam, patient appears nontoxic. She does have a pink swollen area between the second and third digits of the right foot. No break in the skin. Capillary refill intact. Sensation is intact. Patient I discussed treatment options. At this time, this is more consistent with a reaction to the tick itself rather than cellulitis. I do not see any systemic evidence of anaphylaxis or large reaction. It seems quite local and we will treat as such. Strict return precautions were discussed. Encourage follow-up with primary care. All of her questions and concerns were addressed and she is in agreement this plan. HPI General Mode of arrival: ambulatory . Date/Time Provider Initiated Documentation: 08/11/20 20:36 . Limitations to Documentation: no limitations . Information obtained by: patient and RN notes reviewed . History of Present Illness 25 year old F presents to the emergency department with the chief complaint of tick bite right foot, described as moderate, with intensity rated at 4. Quality is described as burning (and itching), and is localized to the right and lower extremity. Patient reports no radiation. Patient started experiencing this day(s) and it has been constant. No relieving factors improve symptom(s), No exacerbating factors reported . Patient notes no other symptoms.. Patient did receive the following treatments prior to arrival, NSAID Related Data Home Medications Medication Instructions Recorded Confirmed acetaminophen [Tylenol] 650 mg PO Q4H PRN PRN tab 10/05/15 08/11/20 melatonin 3 mg capsule 3 mg PO HS PRN 12/05/18 08/11/20 multivitamin 1 cap PO DAILY 08/08/19 08/11/20 sertraline 25 mg tablet 25 mg PO DAILY #30 tab 08/08/19 08/08/19 Previous Rx's Medication Instructions Recorded acetaminophen [Tylenol] 650 mg PO Q4H PRN PRN tab 10/05/15 sertraline 25 mg tablet 25 mg PO DAILY #30 tab 08/08/19 Allergies Allergy/AdvReac Type Severity Reaction Status Date / Time cinnamon [Cinnamon] Allergy Severe Anaphylaxsi Unverified 08/11/20 20:18 s latex Allergy Severe RASH ALL Unverified 08/11/20 20:18 OVER BODY General Stated Complaint: RashLesion ARELI: 4 Review of Systems Constitutional Constitutional: Reports as per HPI, Denies chills and Denies fever(s) Musculoskeletal Musculoskeletal: Reports as per HPI Integumentary/Breasts Skin/Breast: Reports as per HPI Neurologic Neurologic: Reports as per HPI, Denies sensory deficit and Denies paresthesias [facility] Medical History (Updated 08/11/20 @ 20:59 by ZACHARY Eugene) Anemia affecting in third trimester (10/01/15) Chlamydia infection affecting Constipation during in third trimester (10/01/15) Hx: UTI (urinary tract infection) 2010 Pyleonephritis 2012 Rx during 2016 1st trimester pyleonephritis. Nl renal u/s. DATing Us SIUP +FHR CRL 1.18 cm KAREN 12/26/18 c/w KAREN by LMP 12/23/18 FINAL KAREN 12/23/18 examination or test, positive result (02/06/15) Pyelonephritis 03/2015 L sided @ 11w EGA. Ecoli Pyelonephritis affecting (03/09/15) 03/09/15 Admitted @ 11w EGA. Rx with Augmentin x10d then daily Amoxacilin for remainder of Vaginal delivery (12/12/12) Family History Other Bipolar disorder mat aunt Mother Mental disorder depression Father Diabetes Other Multiple endocrine neoplasia (MEN) type II Social History Smoking/Tobacco Use Status: Never Smoking risk assessment performed?: Yes Alcohol Intake: never Drug use: Never Substance use type: does not use Do you feel safe at home: Yes Do you feel safe in your relationship?: Yes Female Reproductive History Menstrual Age of Menarche: 13 Duration of menses: 3-5 days control method: other (nuva ring yet became lax with it) History History 4 Para 3 Hx # Term Pregnancies 3 Multiple births 0 Hx # Pregnancies 0 Ectopic pregnancies 0 AB induced 0 Hx Number of Living Children 3 AB spontaneous 1 Past Pregnancies Del. Date GA/Weeks # Outcome Route Wgt Sex Labor Lgth Anesthes ia Location [facility] 12/12/12 40 No Successful vaginal 4479.225 g Male 32 hrs regional 10/03/15 40 No Successful vaginal 3827.186 g Female [address] neil other 07/18/16 7 No Unsuccessful vaginal 12/27/18 40 No Successful vaginal 4252.428 g Male 23 hours 35 min r egional Bettye Dover CNM Delivery Date: 12/12/12 suprapubic pressure applied. Bettye Dover Delivery Date: 10/03/15 retained placenta, manual removal, w/ increased bleeding ? w/o pph, transfusion. meconium stained fluid. Bettye Dover Delivery Date: 07/18/16 w/o d&C completed at home w/o c/o. ASAF MENA Delivery Date: 12/27/18 small perineal abrasion repaired with Hilda Arauz Exam Const General: cooperative, healthy appearing, comfortable, no acute distress and well developed Nutritional Appearance: average body habitus and well nourished Orientation: alert and awake Resp Effort & Inspection: normal respiratory effort, able to speak in complete sentences and no respiratory distress Cardio Rate: regular rate Rhythm: regular rhythm Skin General skin exam: ecchymosis (pink between toes) Neuro General: patient alert and patient awake Cognition: normal cognition Speech: speech normal Gait: normal gait Sensory Exam: no sensory deficits noted Extrem Ankle/foot/toe images: 1. area of erythema and swelling. No warmth. No discharge or fluctuant area. ROM intact. Sensation intact. Capillary refill intact. Psych Appearance: grossly normal and well kempt Mental Status: mental status grossly normal Speech and Movement: speech and movement normal Course Vital Signs Vital signs: Temperature Source Skin 08/11/20 20:14 Respiratory Effort 08/11/20 20:19 Blood Pressure Position Sitting 08/11/20 20:14 Oxygen Delivery Method Room Air 08/11/20 20:14 Oxygen Flow Rate 0 08/11/20 20:14 Pain Level 4 08/11/20 20:14
== END 2020-08-11 21:08 | disposition home or self-care (01) ==
PROVIDERS: Emergency Provider Physician Assistant
DX: R21 Rash and other nonspecific skin eruption (principal); S90.861A Insect bite (nonvenomous), right foot, initial encounter; W57.XXXA Bitten or stung by nonvenomous insect and other nonvenomous arthropods, initial encounter
CPT/HCPCS: 99282; 99283

== ENCOUNTER 2021-03-10 18:27 | Emergency (ER) | payer MEDICAID, SELFPAY ==
[2021-03-10 18:37] VITALS: BP 133/97; PULSE 125; RESP 14; TEMP 36.8; O2SAT 97
--- NOTE | 2021-03-10 18:56 | ED.GENADUL_ITS ---
Discharge Plan Disposition Patient Disposition: HOME Condition: Stable Discharge Details Clinical Impression: UTI (urinary tract infection) Primary Care Provider: None,None ED Provider: Rivera Arenas Home Meds and New Rx's Prescriptions: New cephalexin 500 mg tablet 500 mg PO BID Qty: 14 RF: 0 phenazopyridine [Pyridium] 100 mg tablet 100 mg PO TID PRN (Reason: pain) Qty: 5 RF: 0 Continued melatonin 3 mg capsule 3 mg PO HS PRNRF: 0 multivitamin Capsule 1 cap PO DAILY RF: 0 acetaminophen [Tylenol] 325 MG tablet 650 mg PO Q4H PRN PRNRF: 0 Discharge Instructions Instructions: Urinary Tract Infection in Women (ED) Additional Instructions: Please take antibiotic as prescribed and also take a probiotic for the next 2 weeks. If you have any worsening of symptoms, development of a fever, vomiting, or further concerns feel free to return to the emergency department for reassess. Otherwise take your antibiotic until fully completed and follow-up with primary care provider if not improving Discharge Data Discharge Date/Time-TO BE ENTERED AT DEPARTURE: 03/10/21 19:36 Medical Decision Making Pt here for Dysuria. . denies fever, abd pain, or vaginal symptoms. Exam shows mild left CVA tenderness, mild supra-pubic tenderness, otherwise neg exam and pt is non toxic in apperance. ddx to include acute cyctitis/UTI, urethritis, Doubt Pyelonephritis or Infected kidney stone UA shows finding to suggest UTI. PT prescribed ABX. Follow up and return precautions discussed. After discussion of diagnosis and plan of care patient has no further needs, questions, or concerns and states clear understanding to return to the emergency department for any worsening symptoms. HPI General Mode of arrival: ambulatory . Date/Time Provider Initiated Documentation: 03/10/21 18:46 . Limitations to Documentation: no limitations . Information obtained by: patient . History of Present Illness 25 year old F presents to the emergency department with the chief complaint of Dysuria, described as moderate and similar to prior episodes, with intensity rated at 6. Quality is described as burning, and is localized to the genitals. Patient reports radiation to back. Patient started experiencing this day(s) (3) and it has been constant. No relieving factors improve symptom(s), No exacerbating factors reported . Patient notes malaise; denies fever/chills and loss of appetite. Patient did receive the following treatments prior to arrival, other (Cranberry juice and pills) Related Data Home Medications Medication Instructions Recorded Confirmed acetaminophen [Tylenol] 650 mg PO Q4H PRN PRN tab 10/05/15 03/10/21 melatonin 3 mg capsule 3 mg PO HS PRN 12/05/18 03/10/21 multivitamin 1 cap PO DAILY 08/08/19 03/10/21 cephalexin 500 mg PO BID #14 tab 03/10/21 phenazopyridine [Pyridium] 100 mg PO TID PRN #5 tab 03/10/21 Previous Rx's Medication Instructions Recorded acetaminophen [Tylenol] 650 mg PO Q4H PRN PRN tab 10/05/15 cephalexin 500 mg PO BID #14 tab 03/10/21 phenazopyridine [Pyridium] 100 mg PO TID PRN #5 tab 03/10/21 Allergies Allergy/AdvReac Type Severity Reaction Status Date / Time cinnamon [Cinnamon] Allergy Severe Anaphylaxsi Unverified 03/10/21 18:43 s latex Allergy Severe RASH ALL Unverified 03/10/21 18:43 OVER BODY General Stated Complaint: Abd Prob ARELI: 3 Review of Systems Constitutional Constitutional: Denies body ache(s), Denies chills, Denies fever(s), Reports malaise and Denies weakness ENT Ears, Nose, Mouth, and Throat: Reports dizziness (Intermittently with discomfort) Cardiovascular Cardiovascular: Denies chest pain Respiratory Respiratory: Reports system reviewed and no additional complaints, except as documented Gastrointestinal Gastrointestinal: Denies abdominal pain, Denies nausea and Denies vomiting Genitourinary Genitourinary: Reports as per HPI, Denies hematuria, Denies genital lesions, Reports dysuria, Denies pelvic pain, Reports urinary hesitancy, Reports urinary urgency and Denies vaginal odor Neurologic Neurologic: Denies confusion, Reports dizziness (Intermittently with discomfort) and Denies weakness Psychiatric Psychiatric: Denies confusion PFSH All Active Problems (Updated 03/10/21 @ 19:30 by Rivera Arenas NP) Local reaction to insect sting (Acute) Tick bite (Acute) UTI (urinary tract infection) (Acute) anxiety (Acute) Vaginal delivery (Acute 12/12/12) Pyelonephritis affecting (Acute 03/09/15) 03/09/15 Admitted @ 11w EGA. Rx with Augmentin x10d then daily Amoxacilin for remainder of examination or test, positive result (Acute 02/06/15) Constipation during in third trimester (Acute 10/01/15) Anemia affecting in third trimester (Acute 10/01/15) (Acute) DATing Us SIUP +FHR CRL 1.18 cm KAREN 12/26/18 c/w KAREN by LMP 12/23/18 FINAL KAREN 12/23/18 Chlamydia infection affecting (Acute) ASCUS with positive high risk HPV (Acute) KAREN 12/23/18 Repeat PAP PP BMI 30.0-30.9,adult (Acute) Gastroesophageal reflux disease (Acute) Headache (Acute) Medical History (Updated 03/10/21 @ 19:30 by Rivera Arenas NP) Hx: UTI (urinary tract infection) 2010 Pyleonephritis 2012 Rx during 2015 1st trimester pyleonephritis. Nl renal u/s. Pyelonephritis 03/2015 L sided @ 11w EGA. Ecoli Family History Other Bipolar disorder mat aunt Mother Mental disorder depression Father Diabetes Other Multiple endocrine neoplasia (MEN) type II Social History Smoking/Tobacco Use Status: Never Smoking risk assessment performed?: Yes Alcohol Intake: never Drug use: Never Substance use type: does not use Do you feel safe at home: Yes Do you feel safe in your relationship?: Yes Female Reproductive History Menstrual Age of Menarche: 13 Duration of menses: 3-5 days control method: other (nuva ring yet became lax with it) History History 4 Para 3 Hx # Term Pregnancies 3 Multiple births 0 Hx # Pregnancies 0 Ectopic pregnancies 0 AB induced 0 Hx Number of Living Children 3 AB spontaneous 1 Past Pregnancies Del. Date GA/Weeks # Outcome Route Wgt Sex Labor Lgth Anesthes ia Location Prov Complic 12/12/12 40 No Successful vaginal 4479.225 g Male 32 hrs regional 10/03/15 40 No Successful vaginal 3827.186 g Female [address] rashaad zhong 07/18/16 7 No Unsuccessful vaginal 12/27/18 40 No Successful vaginal 4252.428 g Male 23 hours 35 min r egional Bettye Dover CNM Delivery Date: 12/12/12 suprapubic pressure applied. Bettye Dover Delivery Date: 10/03/15 retained placenta, manual removal, w/ increased bleeding ? w/o pph, transfusion. meconium stained fluid. Bettye Dover Delivery Date: 07/18/16 w/o d&C completed at home w/o c/o. Asaf Castro Delivery Date: 12/27/18 small perineal abrasion repaired with suture Hilda Ruth Exam Const General: cooperative and no acute distress Orientation: alert, awake and oriented x3 Resp Effort & Inspection: normal respiratory effort and able to speak in complete sentences Auscultation: clear to auscultation bilaterally Cardio Rate: regular rate Rhythm: regular rhythm Heart Sounds: S1 normal and S2 normal GI Palpation: tender suprapubicly General: CVA tenderness on the left (mild) Back/Spine/Pelvis Back: CVA tenderness (mild left) Neuro General: patient alert, patient awake and patient oriented x3 Extrem General: capillary refill normal Course Vital Signs Vital signs: Vital Signs Temperature 36.8 C 03/10/21 18:37 Pulse 125 H 03/10/21 18:37 Respiratory Rate 14 03/10/21 18:37 Blood Pressure 133/97 H 03/10/21 18:37 Pulse Oximetry 97 03/10/21 18:37 Temperature 36.8 C 03/10/21 18:37 Temperature Source Temporal Artery Scan 03/10/21 18:37 Pulse 125 H 03/10/21 18:37 Respiratory Rate 14 03/10/21 18:37 Respiratory Effort Non-Labored 03/10/21 18:44 Blood Pressure 133/97 H 03/10/21 18:37 Blood Pressure Position Sitting 03/10/21 18:37 Pulse Oximetry 97 03/10/21 18:37 Oxygen Delivery Method Room Air 03/10/21 18:37 Oxygen Flow Rate 0 03/10/21 18:37 Pain Level 5 03/10/21 18:37 Lab/Test Results Lab/Test Results: POC- Test(urine) Negative
[2021-03-10 19:06] LABS: Bilirubin Negative (Negative); Blood Negative (Negative); Clarity Clear (Clear); Glucose Negative (Negative); Ketones Negative (Negative); Leukocyte Esterase Trace (Negative); Nitrite Negative (Negative); Specific Gravity >= 1.030 (1.005-1.025); Urobilinogen 0.2 EU/dL (Up TO 0.2)
[2021-03-10 19:21] LABS: Bacteria Negative HPF (Negative); Casts Negative LPF (Negative); Crystals Negative HPF (Negative); Epithelial Cells Few HPF (Negative); Mucus Negative (Negative); Other Cells Negative (Negative); RBC Negative HPF (0-2)
[2021-03-10 19:22] LABS: C & S Indicated? Yes
[2021-03-10] MEDS: Cephalexin 500 MG CAP PO (19:37)
[2021-03-10] MEDS: Phenazopyridine 100 MG TAB PO (19:37)
[2021-03-10 19:38] VITALS: BP 110/79; PULSE 92; RESP 16; TEMP 36.6; O2SAT 98
--- NOTE | 2021-03-14 13:44 | NUR.NOTE ---
Nursing Note: Patient called asking for something to document that she was here and seen on Mar 10 2021 that she can give to her place of employment. 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. This was sent to be scanned. Heaven Stewart
== END 2021-03-10 19:36 | disposition home or self-care (01) ==
PROVIDERS: Emergency Provider Nurse Practitioner Family
DX: N39.0 Urinary tract infection, site not specified (principal); B96.89 Other specified bacterial agents as the cause of diseases classified elsewhere
CPT/HCPCS: 81025; 99283; 81003; 81015; 87086

== ENCOUNTER 2021-05-28 03:38 | Outpatient (CLI) | payer MEDICAID, SELFPAY ==
[2021-05-28 13:50] LABS: Hemoglobin A1C 5.3 % (<5.7)
[2021-05-28 14:32] LABS: Calculated LDL 119 mg/dL (<100); Cholesterol 194 mg/dL (<200); HDL Cholesterol 32 mg/dL (40-60); TSH 1.62 uIU/mL (0.36-3.74); Triglyceride 217 mg/dL (<150)
== END 2021-05-28 03:39 | disposition home or self-care (01) ==
LOC: LBO 03:39
PROVIDERS: PCP Nurse Practitioner Family; Visit Provider Nurse Practitioner Family
DX: Z13.1 Encounter for screening for diabetes mellitus (principal); Z13.220 Encounter for screening for lipoid disorders; Z13.29 Encounter for screening for other suspected endocrine disorder
CPT/HCPCS: 36415; 80061; 83036; 84443

== ENCOUNTER 2021-09-30 08:24 | Emergency (ER) | payer MEDICAID, SELFPAY ==
[2021-09-30 08:30] VITALS: BP 122/77; PULSE 116; RESP 14; TEMP 36.6; O2SAT 99
[2021-09-30 08:56] LABS: Bilirubin Negative (Negative); Blood Negative (Negative); Clarity Clear (Clear); Glucose Negative (Negative); Ketones Negative (Negative); Leukocyte Esterase Negative (Negative); Nitrite Negative (Negative); Specific Gravity 1.025 (1.005-1.025); Urobilinogen 0.2 EU/dL (Up TO 0.2); pH 7.5 (5-8)
--- NOTE | 2021-09-30 08:58 | ED.GENADUL_ITS ---
Discharge Plan Disposition Patient Disposition: HOME Condition: Improving Discharge Details Clinical Impression: Right flank pain Primary Care Provider: Chuck Jesus ED Provider: Del Arambula Home Meds and New Rx's Prescriptions: Continued melatonin 3 mg capsule 3 mg PO HS PRN multivitamin Capsule 1 cap PO DAILY acetaminophen [Tylenol] 325 MG tablet 650 mg PO Q4H PRN [id number] Discharge Instructions Instructions: Flank Pain (ED) Additional Instructions: Your urinalysis and laboratory values are unremarkable for any obvious emergent process. Your ultrasound revealed a small amount of free fluid by your right ovary but otherwise is unremarkable. This does raise a suspicion for the potential of a ruptured ovarian cyst. As we discussed, please watch for new or worsening symptoms and return immediately to the ER. Otherwise I would like you to take [id number] Tylenol and Motrin as directed for discomfort. Please contact your primary care provider later today or tomorrow to discuss your ER visit need for outpatient reevaluation Stand Alone Forms: Work Release Medical Decision Making This is a 26-year-old female who reports past medical history of recurrent UTIs, pyelonephritis, this does not feel like that, presenting for what she described as right lower back pain that wraps around her flank. She did report mild nausea at 1 point secondary to the pain but otherwise has no nausea or vomiting. She went to bed last night feeling asymptomatic. She denies fever, change of appetite, diarrhea, constipation, dysuria, hematuria vaginal bleeding or discharge. Reports that she is sexually active with 1 partner and has no concern for STI. Clinically she appears well, nontoxic, initial heart rate in triage was 116 but during my evaluation was in the 90s. She has diffuse lower right lumbar discomfort without CVA tenderness which does wrap around to her flank into her lateral right lower quadrant, no McBurney point tenderness. Differential includes but not excluded to musculoskeletal strain, pyelon ephritis, UTI, renal stone, ovarian cyst, torsion, appendicitis, , ectopic etc. Plan is to obtain IV access, give IV Toradol, obtain routine screening laboratory values and urinalysis Patient reports significant improvement of her discomfort with IV Toradol CBC, CMP, lipase, urinalysis all unremarkable. We discussed her benign work-up thus far. Discussed imaging such as CT versus ultrasound. Using shared decision making, opted to avoid CT imaging and will obtain ultrasound. Ultrasound reveals normal kidneys, normal uterus with endometrial stripe, unremarkable bilateral ovaries. There is a very small amount of free fluid adjacent to the right ovary. Discussed work-up thus far with patient. We discussed pelvic examination for further evaluation, patient declines. We did discuss that there was a small amount of fluid near the right ovary it was certainly could represent a ruptured cyst. Patient remains hemodynamically stable. Standard discharge and return precautions were provided. Patient understands, is agreeable to this plan, and has no additional questions or concerns upon discharge. This documentation was generated using [employer] system, please disregard any oddities of phrase or misspellings. Medical Records Medical records reviewed: Yes I reviewed the patient's medical records. Imaging Data Radiologic Study: Attestation: I personally reviewed and interpreted this imaging study as follows: Imaging: Ultrasound Radiologist's impression: This report is currently processing and HAS NOT BEEN OFFICIALLY SIGNED BY THE PHYSICIAN - ESTIMATED TIME OF APPROVAL IS 09/30/2021 10:42. Exam(s) US PELVIS TRANSVAGINAL EXAM: US PELVIS TRANSVAGINAL CLINICAL HISTORY: RLQ/pelvic pain. TECHNIQUE: Transabdominal and transvaginal pelvic ultrasound was performed using standard protocol. COMPARISON: US US OB MOUNIKA WEIGHT from 12/06/2018 FINDINGS: KIDNEYS: Kidneys are symmetric in size. No evidence of renal calculi. No evidence of hydronephrosis. No renal mass or cyst identified. UTERUS: Position: Anteverted. Size: 9.2 long by 4.1 AP by 6.3 transverse cm Endometrium: 1.3 cm. Normal for patient's menstrual status. Myometrium: Unremarkable. Cervix: Unremarkable. OVARIES: Right: 2.7 x 1.7 x 2 cm Cyst or mass: No suspicious cystic or solid masses. Left: 2.2 x 1.7 x 2.5 cm Cyst or mass: No suspicious cystic or solid masses. DOPPLER: Color: Symmetric and uniform flow to both ovaries. CUL-DE-SAC: Free fluid: There is a very small amount of free fluid adjacent to the right ovary. Other: None. IMPRESSION: 1. Normal sonographic appearance of the kidneys. 2. Normal-appearing uterus with endometrial stripe within normal limits. 3. Unremarkable bilateral ovaries. 4. Very small amount of free fluid adjacent to the right ovary. 5. Results of this exam have been verbally communicated with provider. Lab Data Lab results reviewed: Yes I reviewed the patient's lab results. Labs: Laboratory Tests Range/Units 09/30/21 09/30/21 09/30/21 08:41 09:18 09:18 WBC (4.4-10.8) 10^3/uL 9.69 RBC (3.93-5.22) 10^6/uL 4.81 Hgb (11.2-15.7) g/dL 13.9 Hct (36.0-46.0) % 41.7 MCV (80-95) fL 87 MCH (27.0-33.0) pg 28.9 MCHC (32.0-36.0) % 33.3 RDW (11.7-14.6) % 12.0 Plt Count (130-400) 10^3/uL 222 MPV (8.0-11.0) fL 11.8 H Immature Gran % 0.3 Neutrophils % 64.7 Lymphocytes % 27.7 Monocytes % 7.0 Eosinophils % 0.1 Basophils % 0.2 Nucleated RBC % (0.0-0.3) % 0.0 Absolute Neutrophils (1.2-6.7) 10^3/uL 6.27 Absolute Lymphocytes (1.2-3.4) 10^3/uL 2.68 Absolute Monocytes (0.1-0.8) 10^3/uL 0.68 Absolute Eosinophils (0.0-0.7) 10^3/uL 0.01 Absolute Basophils (0.0-0.2) 10^3/uL 0.02 Sodium (136-145) mmol/L 138 Potassium (3.5-5.1) mmol/L 3.7 Chloride (98-107) mmol/L 103 Carbon Dioxide (21.0-32.0) mmol/L 29.5 Anion Gap (3-11) mmol/L 5.5 BUN (7-18) mg/dL 8 Creatinine (0.55-1.02) mg/dL 0.7 Estimated GFR/1.73 m2 (mL/min/1.73m2) >= 60.00 Glucose (74-106) mg/dL 88 Calcium (8.5-10.1) mg/dL 9.0 Total Bilirubin (0.2-1.0) mg/dL 0.4 AST (15-37) U/L 17 ALT (14-59) U/L 27 Alkaline Phosphatase (46-116) U/L 85 Total Protein (6.4-8.2) g/dL 7.8 Albumin (3.4-5.0) g/dL 3.6 Lipase (73-393) U/L 94 Urine Color (Yellow) Yellow Urine Clarity (Clear) Clear Urine pH (5-8) 7.5 Ur Specific [place] (1.005-1.025) 1.025 Urine Protein (Negative) mg/dL Negative Urine Ketones (Negative) mg/dL Negative Urine Blood (Negative) Negative Urine Nitrite (Negative) Negative Urine Bilirubin (Negative) Negative Urine Urobilinogen (Up TO 0.2) EU/dL 0.2 Ur Leukocyte Esterase (Negative) Negative Urine Glucose (Negative) mg/dL Negative HPI General Mode of arrival: ambulatory . Date/Time Provider Initiated Documentation: 09/30/21 08:25 . Limitations to Documentation: no limitations . Information obtained by: patient . History of Present Illness 26 year old F presents to the emergency department with the chief complaint of R low back pain, described as moderate, with intensity rated at 7. Quality is described as stabbing and aching, and is localized to the back and right. Patient flank. Patient started experiencing this hour(s) (3) and it has been constant. No relieving factors improve symptom(s), No exacerbating factors reported . Patient notes nausea/vomiting (nausea, no vomiting). Patient did receive the following treatments prior to arrival, NSAID Related Data Home Medications Medication Instructions Recorded Confirmed acetaminophen 325 mg tablet 650 mg PO Q4H PRN PRN 10/05/15 09/30/21 (Tylenol) melatonin 3 mg capsule 3 mg PO HS PRN 12/05/18 09/30/21 multivitamin 1 cap PO DAILY 08/08/19 09/30/21 Previous Rx's Medication Instructions Recorded acetaminophen 325 mg tablet 650 mg PO Q4H PRN PRN 10/05/15 (Tylenol) Allergies Allergy/AdvReac Type Severity Reaction Status Date / Time cinnamon [Cinnamon] Allergy Severe Anaphylaxsi Unverified 09/30/21 08:33 s latex Allergy Severe RASH ALL Unverified 09/30/21 08:33 OVER BODY General Stated Complaint: Abd Prob ARELI: 3 Review of Systems Constitutional Constitutional: Denies fever(s) Cardiovascular Cardiovascular: Denies chest pain and Denies dyspnea Respiratory Respiratory: Denies dyspnea Gastrointestinal Gastrointestinal: Reports abdominal pain, Denies constipation, Denies diarrhea, Reports nausea and Denies vomiting Genitourinary Genitourinary: Denies abnormal vaginal bleeding, Denies dysuria and Denies vaginal discharge Musculoskeletal Musculoskeletal: Reports back pain Integumentary/Breasts Skin/Breast: Denies rash PFSH All Active Problems (Updated 09/30/21 @ 10:40 by ZACHARY Christopher) Right flank pain (Acute) BMI 30.0-30.9,adult (Acute) Gastroesophageal reflux disease (Acute) Headache (Acute) Medical History Anxiety (09/12/13) ASCUS with positive high risk HPV KAREN 12/23/18 Repeat PAP PP Constipation Hx: UTI (urinary tract infection) 2010 Pyleonephritis 2012 Rx during 2015 1st trimester pyleonephritis. Nl renal u/s. (04/20/12) Pyelonephritis 03/2015 L sided @ 11w EGA. Ecoli Pyelonephritis Pyelonephritis affecting (03/09/15) 03/09/15 Admitted @ 11w EGA. Rx with Augmentin x10d then daily Amoxacilin for remainder of Recurrent urinary tract infection (01/15/00) Umbilical hernia (11/07/96) Varicella Family History Other Bipolar disorder mat aunt Mother Mental disorder depression Alcohol use disorder Depression Substance use disorder Father , 52 Diabetes Depression Hyperlipidemia Hypertension Substance use disorder Sister Asthma Depression Brother Alcohol use disorder Depression Substance use disorder Son No problems noted. Son No problems noted. Daughter No problems noted. Other Multiple endocrine neoplasia (MEN) type II Social History Smoking/Tobacco Use Status: Never Second Hand Exposure: Yes Smoking risk assessment performed?: Yes Alcohol Intake: never Drug use: Never Substance use type: does not use Caregiver/Support person: No Household members: significant other and children Housing: apartment Communication Needs: None Do you need help understanding health information?: Rarely Pets and animals: Yes Pets and animals: dog(s) Sexually active: Yes Do you think of yourself as: straight/heterosexual Current gender identity: female What is your relationship status?: living with partner How often do you talk on the phone with friends or family?: once per week How often do you get together with friends or relatives?: once per week How often do you attend christian or voodoo services?: decline to answer Do you belong to any clubs or organized social groups?: no Panel score (0-1 are the most socially isolated patients): 1 What type of physical activity do you participate in: aerobic and bicycling Duration: 30-45 minutes/day Frequency: 3-4 times per week Maddi/Methodist: No preference Special maddi needs: No Seatbelt use: sometimes Helmet use: Yes Helmet use: sometimes Drive intox or ride w/intox delivery driver/supervisor: No Do you feel safe at home: Yes Do you feel safe in your relationship?: Yes Female Reproductive History Menstrual Age of Menarche: 13 Duration of menses: 3-5 days control method: other (nuva ring yet became lax with it) History History 4 Para 3 Hx # Term Pregnancies 3 Multiple births 0 Hx # Pregnancies 0 Ectopic pregnancies 0 AB induced 0 Hx Number of Living Children 3 AB spontaneous 1 Past Pregnancies Del. Date GA/Weeks # Preg Succ Route Wgt Sex Labor Lgth Anesth esia Location Prov Complic 12/12/12 40 No vaginal 4479.225 g Male 32 hrs regional 10/03/15 40 No vaginal 3827.186 g Female [address] rashaad zhong 07/18/16 7 No vaginal 12/27/18 40 No vaginal 4252.428 g Male 23 hours 35 min region al Bettye Dover CNM Delivery Date: 12/12/12 Last Updated by: Bettye Dover CNM suprapubic pressure applied. Delivery Date: 10/03/15 Last Updated by: Bettye Dover CNM retained placenta, manual removal, w/ increased bleeding ? w/o pph, transfusion. meconium stained fluid. Delivery Date: 07/18/16 Last Updated by: Asaf Castro CNM w/o d&C completed at home w/o c/o. Delivery Date: 12/27/18 Last Updated by: Hilda Chiang LPN small perineal abrasion repaired with suture Exam Const General: cooperative, healthy appearing, comfortable and no acute distress Orientation: alert and awake [facility] Head: normal to inspection, normocephalic and atraumatic Eyes Conjunctivae: conjunctivae normal Neck Neck: normal visual inspection, full ROM, trachea midline and supple Resp Effort & Inspection: normal respiratory effort and able to speak in complete sentences Auscultation: clear to auscultation bilaterally Cardio Rate: regular rate Rhythm: regular rhythm GI Inspection: normal to inspection Palpation: soft, not firm, no guarding, no pulsatile masses and tender (Right flank and right lower quadrant) not at McBurney's point and with no rebound tenderness Auscultation: normal bowel sounds General: deferred (Patient declined) Back/Spine/Pelvis Back: no CVA tenderness and back tenderness (Right lower lumbar, no midline point tenderness) Skin General skin exam: no rashes or lesions noted Neuro General: patient alert, patient awake, moves all extremities and no focal motor deficits Cognition: normal cognition Speech: speech normal Gait: normal gait Motor: muscle tone normal throughout Sensory Exam: no sensory deficits noted Extrem General: normal to inspection, full ROM and capillary refill normal Psych Appearance: grossly normal Mental Status: mental status grossly normal Course Vital Signs Vital signs: Vital Signs Temperature 36.6 C 09/30/21 08:30 Pulse 116 H 09/30/21 08:30 Respiratory Rate 14 09/30/21 08:30 Blood Pressure 122/77 09/30/21 08:30 Pulse Oximetry 99 09/30/21 08:30 Temperature 36.6 C 09/30/21 08:30 Temperature Source Temporal Artery Scan 09/30/21 08:30 Pulse 116 H 09/30/21 08:30 Respiratory Rate 14 09/30/21 08:30 Respiratory Effort Non-Labored 09/30/21 08:34 Blood Pressure 122/77 09/30/21 08:30 Blood Pressure Position Supine 09/30/21 08:30 Pulse Oximetry 99 09/30/21 08:30 Oxygen Delivery Method Room Air 09/30/21 08:30 Oxygen Flow Rate 0 09/30/21 08:30 Pain Level 5 09/30/21 08:30
[2021-09-30] MEDS: Ketorolac 30 MG/ML VIAL IVP (09:21)
[2021-09-30 09:35] LABS: Abs Immature Grans 0.03 10^3/uL (0.0-0.06); Absolute Basophil Count 0.02 10^3/uL (0.0-0.2); Absolute Eosinophil Count 0.01 10^3/uL (0.0-0.7); Absolute Lymphocyte Count 2.68 10^3/uL (1.2-3.4); Absolute Monocyte Count 0.68 10^3/uL (0.1-0.8); Absolute Neutrophil Count 6.27 10^3/uL (1.2-6.7); Basophils % 0.2; Eosinophils % 0.1; HCT 41.7 % (36.0-46.0); HGB 13.9 g/dL (11.2-15.7); Immature Grans % 0.3; Lymphocytes % 27.7; MCH 28.9 pg (27.0-33.0); MCHC 33.3 % (32.0-36.0); MCV 87 fL (80-95); MPV 11.8 fL (8.0-11.0); Neutrophils % 64.7; Platelet Count 222 10^3/uL (130-400); RBC 4.81 10^6/uL (3.93-5.22); RDW-SD 38.5 fL; WBC 9.69 10^3/uL (4.4-10.8)
--- NOTE | 2021-09-30 09:40 | DI.US_ITS ---
Exam(s) US PELVIS TRANSVAGINAL EXAM: US PELVIS TRANSVAGINAL CLINICAL HISTORY: RLQ/pelvic pain. TECHNIQUE: Transabdominal and transvaginal pelvic ultrasound was performed using standard protocol. COMPARISON: US US OB MOUNIKA WEIGHT from 12/06/2018 FINDINGS: KIDNEYS: Kidneys are symmetric in size. No evidence of renal calculi. No evidence of hydronephrosis. No renal mass or cyst identified. UTERUS: Position: Anteverted. Size: 9.2 long by 4.1 AP by 6.3 transverse cm Endometrium: 1.3 cm. Normal for patient's menstrual status. Myometrium: Unremarkable. Cervix: Unremarkable. OVARIES: Right: 2.7 x 1.7 x 2 cm Cyst or mass: No suspicious cystic or solid masses. Left: 2.2 x 1.7 x 2.5 cm Cyst or mass: No suspicious cystic or solid masses. DOPPLER: Color: Symmetric and uniform flow to both ovaries. CUL-DE-SAC: Free fluid: There is a very small amount of free fluid adjacent to the right ovary. Other: None. IMPRESSION: 1. Normal sonographic appearance of the kidneys. 2. Normal-appearing uterus with endometrial stripe within normal limits. 3. Unremarkable bilateral ovaries. 4. Very small amount of free fluid adjacent to the right ovary. 5. Results of this exam have been verbally communicated with provider. DATA REPOSITORY:
--- NOTE | 2021-09-30 09:46 | PDOC.ERCMPRO ---
- If Service Date Differs Date of service: 09/30/21 Time of Service: 09:46 Care Management Progress Note Pt endorses low risk anxiety symptoms (WATSON 4) and reports she is currently receiving counseling. We briefly discussed coping mechanisms and mindfulness practices that are helpful to her.
[2021-09-30 09:48] VITALS: O2SAT 97
[2021-09-30 09:49] VITALS: BP 106/67; PULSE 77; RESP 16; TEMP 36.2; O2SAT 97
[2021-09-30 09:50] VITALS: BP 106/67; PULSE 72
[2021-09-30 09:50] LABS: ALT 27 U/L (14-59); AST 17 U/L (15-37); Albumin 3.6 g/dL (3.4-5.0); Alkaline Phosphatase 85 U/L (46-116); Anion Gap 5.5 mmol/L (3-11); BUN 8 mg/dL (7-18); Bilirubin, Total 0.4 mg/dL (0.2-1.0); CO2 29.5 mmol/L (21.0-32.0); CREATININE 0.7 mg/dL (0.55-1.02); Chloride 103 mmol/L (98-107); Glucose 88 mg/dL (74-106); Lipase 94 U/L (73-393); Potassium 3.7 mmol/L (3.5-5.1); Sodium 138 mmol/L (136-145); Total Protein 7.8 g/dL (6.4-8.2)
== END 2021-09-30 10:51 | disposition home or self-care (01) ==
PROVIDERS: Emergency Provider Physician Assistant; PCP Nurse Practitioner Family
DX: R10.9 Unspecified abdominal pain (principal); Z87.440 Personal history of urinary (tract) infections; Z77.22 Contact with and (suspected) exposure to environmental tobacco smoke (acute) (chronic)
CPT/HCPCS: 80053; 83690; 96374; 99284; 76830; 76856; 81003; 85025; J1885

== ENCOUNTER 2023-10-10 08:13 | Emergency (ER) | payer MEDICAID, SELFPAY ==
[2023-10-10 08:39] VITALS: BP 111/68; PULSE 89; RESP 16; TEMP 36.6; O2SAT 99
--- NOTE | 2023-10-10 08:58 | DI.US_ITS ---
Exam(s) US RENAL PELVIC TRANSVAGINAL EXAM: US RENAL PELVIC TRANSVAGINAL CLINICAL HISTORY: Left flank pain, vomiting, TECHNIQUE: Ultrasound of the pelvis was performed both transabdominal and transvaginal. Ultrasound of the kidneys and urinary bladder also performed. COMPARISON: US US PELVIS TRANSVAGINAL from 09/30/2021 FINDINGS: KIDNEYS: Both kidneys exhibit normal size and normal cortical thickness and corticomedullary differen tiation. There are no calculi nor hydronephrosis on either side. No renal cysts nor solid renal mas ses. No obvious small rotation. URINARY BLADDER: Prevoid volume was 279 cc postvoid volume was 0 cc. No bladder wall masses seen. N o clots nor calculi seen in the bladder and no bladder masses. Both ureterovesical jets were identif ied. UTERUS: Measures 8.8 cm length x 5 cm AP x 6.3 cm wide. There are no uterine fibroids. Endometrial thickness measures 11 mm. No evidence of intrauterine gestational sac. There is no fluid in the endometrial canal. CERVIX: There are no obvious nabothian cysts. RIGHT OVARY: Measures 3 x 1.8 x 1.7 cm No significant cysts nor masses evident in the right ovary. Normal blood flow LEFT OVARY: Measures 2.5 x 1.3 x 1.0 cm No significant cysts nor masses evident in the left ovary. Normal blood flow CUL-DE-SAC: No free fluid evident. IMPRESSION: 1. Normal appearing uterus and age-appropriate endometrium. No evidence of intrauterine gestational sac 2. No abnormal adnexal findings. 3. No free fluid evident in the adnexal regions and cul-de-sac. 4. Kidneys and urinary bladder unremarkable. No hydronephrosis. DATA REPOSITORY:
--- NOTE | 2023-10-10 09:01 | W.ED.GENAD ---
Discharge Plan Disposition Patient Disposition: Home Condition: Stable Discharge Details Clinical Impression: Flank pain in patient, Elevated serum human chorionic gonadotropin (hCG) level Primary Care Provider: Chuck Jesus ED Provider: Corinne Barakat Home Meds and New Rx's Prescriptions: New metoclopramide HCl [Reglan] 5 mg tablet 5 mg PO QACHS PRN (Reason: nausea and vomiting) Qty: 14 0RF Rx Instructions: Please take 1 tablet before meals and at bedtime no more than 4 times daily as needed. nitrofurantoin macrocrystal 100 mg capsule 100 mg PO BID 5 Days Qty: 10 0RF Rx Instructions: must administer with a meal/food Discharge Instructions Instructions: Nausea and Vomiting, Adult ED, Flank Pain ED Additional Instructions: Please keep your VETERINARY TECHNICIAN appointment as previously scheduled. Please have your blood drawn in approximately 2 days to recheck the serum hCG level. You have a small amount of leukocytes in her urine we will treat empirically with Macrobid for possible early urinary tract infection. Please take the nausea medications as directed. Increase oral fluids. Please return to the ER for any worsening pain, vaginal bleeding, dizziness lightheadedness, fever vomiting or concerns. Referrals: [facility] [Provider Group] - 2 days Chuck Jesus, RESEARCH ENGINE[employer] [Primary Care Provider] - HPI General Mode of arrival: ambulatory. Date/Time Provider Initiated Documentation: 10/10/23 08:24. Limitations to Documentation: no limitations. Information obtained by: patient, RN notes reviewed and old records reviewed. HPI Narrative: 28-year-old female presents to the ER with chief complaint of left flank pain which began approximately 3 days ago, worse this morning. She reports that she has had emesis x 4, she recently found out that she is . Positive test at home last week. Unknown last menstrual period she has irregular periods, she is Ab1, denies any abnormal vaginal discharge or bleeding. Denies any significant abdominal pain. Denies any recent injuries or heavy lifting. She does report chills last night. She has not seen VETERINARY TECHNICIAN for this as of yet. Past medical history includes pyelonephritis, varicella in 2013, GERD, anxiety Related Data Home Medications ?Medication ?Instructions ?Recorded ?Confirmed metoclopramide HCl 5 mg tablet 5 mg PO QACHS PRN nausea and 10/10/23 (Reglan) vomiting #14 tabs nitrofurantoin macrocrystal 100 mg 100 mg PO BID 5 days #10 caps 10/10/23 capsule Previous Rx's ?Medication ?Instructions ?Recorded metoclopramide HCl 5 mg tablet 5 mg PO QACHS PRN nausea and 10/10/23 (Reglan) vomiting #14 tabs nitrofurantoin macrocrystal 100 mg 100 mg PO BID 5 days #10 caps 10/10/23 capsule Allergies Allergy/AdvReac Type Severity Reaction Status Date / Time cinnamon (Cinnamon) Allergy Severe Anaphylaxsi Unverified 07/22/22 13:21 s latex Allergy Severe RASH ALL Unverified 07/22/22 13:21 OVER BODY General Stated Complaint: FlankPain ARELI: 3 Review of Systems All systems reviewed & are unremarkable except as noted in HPI and below Cardiovascular Cardiovascular: Denies chest pain and Denies dyspnea Respiratory Respiratory: Denies cough and Denies dyspnea Gastrointestinal Gastrointestinal: Reports as per HPI, Denies abdominal pain, Denies diarrhea, Reports nausea and Reports vomiting Genitourinary Genitourinary: Reports abnormal menses, Denies abnormal vaginal bleeding, Denies dysuria, Denies pelvic pain, Reports flank pain and Denies vaginal discharge Exam Narrative Exam Narrative: Constitutional: Alert and oriented x3. Appears stated age. Normal body habitus. Head: Normocephalic, no trauma. Eyes: Pupils PERRL, Red reflex noted, EOM's intact. Eyelids symmetrical without lesions, discharge, or swelling. ENT: Bilateral TM's WNL, External ear normal to inspection, no mastoid TTP, swelling, or erythema, Nasal turbinates WNL, no nasal discharge. Poor dentition, Posterior pharynx WNL, no exudate. Chest: RRR, Normal S1, S2, distal pulses intact. Resp: Lungs clear to auscultation bilaterally, no wheezes, rales, or rhonchi. Abdomen: Soft, non-distended, Normoactive bowel sounds all 4 quads. Positive left CVA tenderness with palpation. No midline T or L-spine tenderness. Musculoskeletal: Normal gait, Moves all 4 extremities without difficulty. Skin: No suspicious rashes or lesions. Capillary refill less than 2 sec. Neurologic: Cranial nerves II-XII intact. Alert and oriented x 3. Motor: No deficits noted. Sensory: Intact bilaterally all 4 extremities. Hematologic/Lymphatic: No ecchymosis, no lymphadenopathy. Course Vital Signs Vital signs: Vital Signs Temperature 36.6 C 10/10/23 08:39 Pulse 89 10/10/23 08:39 Respiratory Rate 16 10/10/23 08:39 Blood Pressure 111/68 10/10/23 08:39 Pulse Oximetry 99 10/10/23 08:39 Temperature 36.6 C 10/10/23 08:39 Pulse 89 10/10/23 08:39 Respiratory Rate 16 10/10/23 08:39 Blood Pressure 111/68 10/10/23 08:39 Pulse Oximetry 99 10/10/23 08:39 Pain Level 5 10/10/23 08:39 Medical Decision Making 28-year-old female presents to the ER with chief complaint of left flank pain which began approximately 3 days ago, worse this morning. She reports that she has had emesis x 4, she recently found out that she is . Positive test at home last week. Unknown last menstrual period she has irregular periods, she is Ab1, denies any abnormal vaginal discharge or bleeding. Denies any significant abdominal pain. Denies any recent injuries or heavy lifting. She does report chills last night. She has not seen VETERINARY TECHNICIAN for this as of yet. Past medical history includes pyelonephritis, varicella in 2013, GERD, anxiety Differential diagnose includes but not limited to UTI, pyelonephritis, kidney stone, ectopic , musculoskeletal sprain Workup ordered including CBC CMP, urinalysis urine test, urine hCG renal ultrasound and pelvic ultrasound liter of normal saline Reglan and Tylenol. On patient reevaluation she is sleeping she appears much more comfortable. She reports that she feels somewhat better. Discussed her lab results including the hCG quant of 19 and her ultrasound results which show no intrauterine , negative urine test and no evidence of kidney stones or hydronephrosis. She does have trace leukocytes however no white blood cell counts on the microscopic of her urinalysis no evidence of dysuria. I did discuss treating possibly for early UTI as a precaution. Discussed having her hCG quant levels redrawn in approximately 48 hours. She does report that she has an appointment with VETERINARY TECHNICIAN tomorrow and encouraged her to keep this appointment. Will send her home with some Reglan for nausea and discussed strict return instructions. This text was generated using Nuance dictation system, please disregard any oddities of phrase or misspellings. Medical Records Medical records reviewed: Yes I reviewed the patient's medical records. Imaging Data Radiologic Study: Imaging: Ultrasound Radiologist's impression: Exam(s) US RENAL PELVIC TRANSVAGINAL EXAM: US RENAL PELVIC TRANSVAGINAL CLINICAL HISTORY: Left flank pain, vomiting, TECHNIQUE: Ultrasound of the pelvis was performed both transabdominal and transvaginal. Ultrasound of the kidneys and urinary bladder also performed. COMPARISON: US US PELVIS TRANSVAGINAL from 09/30/2021 FINDINGS: KIDNEYS: Both kidneys exhibit normal size and normal cortical thickness and corticomedullary differentiation. There are no calculi nor hydronephrosis on either side. No renal cysts nor solid renal masses. No obvious small rotation. URINARY BLADDER: Prevoid volume was 279 cc postvoid volume was 0 cc. No bladder wall masses seen. No clots nor calculi seen in the bladder and no bladder masses. Both ureterovesical jets were identified. UTERUS: Measures 8.8 cm length x 5 cm AP x 6.3 cm wide. There are no uterine fibroids. Endometrial thickness measures 11 mm. No evidence of intrauterine gestational sac. There is no fluid in the endometrial canal. CERVIX: There are no obvious nabothian cysts. RIGHT OVARY: Measures 3 x 1.8 x 1.7 cm No significant cysts nor masses evident in the right ovary. Normal blood flow LEFT OVARY: Measures 2.5 x 1.3 x 1.0 cm No significant cysts nor masses evident in the left ovary. Normal blood flow CUL-DE-SAC: No free fluid evident. IMPRESSION: 1. Normal appearing uterus and age-appropriate endometrium. No evidence of intrauterine gestational sac 2. No abnormal adnexal findings. 3. No free fluid evident in the adnexal regions and cul-de-sac. 4. Kidneys and urinary bladder unremarkable. No hydronephrosis. Lab Data Lab results reviewed: Yes I reviewed the patient's lab results. Labs: Laboratory Tests Range/Units 10/10/23 10/10/23 10/10/23 08:58 09:07 09:07 WBC (4.4-10.8) 10^3/uL 9.82 RBC (3.93-5.22) 10^6/uL 4.53 Hgb (11.2-15.7) g/dL 14.0 Hct (36.0-46.0) % 42.4 MCV (80-95) fL 94 MCH (27.0-33.0) pg 30.9 MCHC (32.0-36.0) % 33.0 RDW (11.7-14.6) % 12.7 Plt Count (130-400) 10^3/uL 222 MPV (8.0-11.0) fL 11.4 H Immature Gran % % 0.4 Neutrophils % % 67.6 Lymphocytes % % 26.4 Monocytes % % 5.4 Eosinophils % % 0.0 Basophils % % 0.2 Nucleated RBC % (0.0-0.3) % 0.0 Absolute Neutrophils (1.2-6.7) 10^3/uL 6.64 Absolute Lymphocytes (1.2-3.4) 10^3/uL 2.59 Absolute Monocytes (0.1-0.8) 10^3/uL 0.53 Absolute Eosinophils (0.0-0.7) 10^3/uL 0.00 Absolute Basophils (0.0-0.2) 10^3/uL 0.02 Sodium (136-145) mmol/L 140 Potassium (3.5-5.1) mmol/L 3.5 Chloride (98-107) mmol/L 103 Carbon Dioxide (21.0-32.0) mmol/L 29.2 Anion Gap (3-11) mmol/L 7.8 BUN (7-18) mg/dL 8 Creatinine (0.55-1.02) mg/dL 0.8 Est GFR (CKD-EPI 2020) (mL/min/1.73m2) 102.86 Glucose (74-106) mg/dL 93 Calcium (8.5-10.1) mg/dL 9.3 Beta HCG, Quant (1-3) mIU/mL 19 H Cancelled Urine Color (Yellow) Yellow Urine Clarity (Clear) Clear Urine pH (5-8) 6.5 Ur Specific [place] (1.005-1.025) 1.025 Urine Protein (Neg-Trace) mg/dL Negative Urine Ketones (Negative) mg/dL Negative Urine Blood (Negative) Trace-intact H Urine Nitrite (Negative) Negative Urine Bilirubin (Negative) Negative Urine Urobilinogen (Up to 0.2) mg/dL 0.2 Ur Leukocyte Esterase (Negative) Trace H Urine RBC (0-2) HPF 0-2 Urine WBC (0-5) HPF 0-2 Ur Epithelial Cells (Negative) HPF Rare Urine Crystals (Negative) HPF Negative Urine Bacteria (Negative) HPF Rare Urine Casts (Negative) LPF Negative Urine Mucus (Negative) Negative Urine Other (Negative) Negative Ur Culture Indicated? No Urine Glucose (Negative) mg/dL Negative Quality:SDOH Health Related Social Needs: No Data to Display PFSH All Active Problems (Updated 10/10/23 @ 11:20 by Corinne Barakat NP) Elevated serum human chorionic gonadotropin (hCG) level (Acute) Flank pain in patient (Acute) Anxiety (Chronic 09/12/13) BMI 30.0-30.9,adult (Acute) Gastroesophageal reflux disease (Acute) Headache (Acute) Medical History Pyelonephritis (04/20/12) Varicella Umbilical hernia (11/07/96) Recurrent urinary tract infection (01/15/00) Constipation ASCUS with positive high risk HPV KAREN 12/23/18 Repeat PAP PP Pyelonephritis affecting (03/09/15) 03/09/15 Admitted @ 11w EGA. Rx with Augmentin x10d then daily Amoxacilin for remainder of Pyelonephritis 03/2015 L sided @ 11w EGA. Ecoli Hx: UTI (urinary tract infection) 2010 Pyleonephritis 2012 Rx during 2015 1st trimester pyleonephritis. Nl renal u/s. Family History Other Bipolar disorder mat aunt Mother Mental disorder depression Alcohol use disorder Depression Substance use disorder Father , 52 Diabetes Depression Hyperlipidemia Hypertension Substance use disorder Sister Asthma Depression Brother Alcohol use disorder Depression Substance use disorder Son No problems noted. Son No problems noted. Daughter No problems noted. Other Multiple endocrine neoplasia (MEN) type II Social History Smoking/Tobacco Use Status: Never Second Hand Exposure: Yes Smoking risk assessment performed?: Yes Alcohol Intake: never Drug use: Never Substance use type: does not use Caregiver/Support person: No Household members: significant other and children Housing: apartment Communication Needs: None Do you need help understanding health information?: Rarely Pets and animals: Yes Pets and animals: dog(s) Sexually active: Yes Do you think of yourself as: straight/heterosexual Current gender identity: female What is your relationship status?: living with partner How often do you talk on the phone with friends or family?: once per week How often do you get together with friends or relatives?: once per week How often do you attend scientology or church services?: decline to answer Do you belong to any clubs or organized social groups?: no Panel score (0-1 are the most socially isolated patients): 1 What type of physical activity do you participate in: aerobic and bicycling Duration: 30-45 minutes/day Frequency: 3-4 times per week Maddi/Yarsani: No preference Special maddi needs: No Seatbelt use: sometimes Helmet use: Yes Helmet use: sometimes Drive intox or ride w/intox truck driver instructor: No Do you feel safe at home: Yes Do you feel safe in your relationship?: Yes Female Reproductive History Menstrual Age of Menarche: 13 Duration of menses: 3-5 days control method: other (nuva ring yet became lax with it) History History 4 Para 3 Hx # Term Pregnancies 3 Multiple births 0 Hx # Pregnancies 0 Ectopic pregnancies 0 AB induced 0 Hx Number of Living Children 3 AB spontaneous 1 Past Pregnancies Del. Date GA/Weeks # Preg Succ Route Wgt Sex Labor Lgth Anesthesia Location [facility] 12/12/12 40 No vaginal 4479.225 g Male 32 hrs regional 10/03/15 40 No vaginal 3827.186 g Female [address] rashaad zhong 07/18/16 7 No vaginal 12/27/18 40 No vaginal 4252.428 g Male 23 hours 35 min regional Bettye Dover CNM Delivery Date: 12/12/12 Last Updated by: Bettye Dover CNM suprapubic pressure applied. Delivery Date: 10/03/15 Last Updated by: Bettye Dover CNM retained placenta, manual removal, w/ increased bleeding ? w/o pph, transfusion. meconium stained fluid. Delivery Date: 07/18/16 Last Updated by: Asaf Castro CNM w/o d&C completed at home w/o c/o. Delivery Date: 12/27/18 Last Updated by: Hilda Chiang LPN small perineal abrasion repaired with suture
[2023-10-10 09:09] LABS: Bilirubin Negative (Negative); Blood Trace-intact (Negative); Clarity Clear (Clear); Glucose Negative (Negative); Ketones Negative (Negative); Leukocyte Esterase Trace (Negative); Nitrite Negative (Negative); Specific Gravity 1.025 (1.005-1.025); Urobilinogen 0.2 mg/dL (Up to 0.2); pH 6.5 (5-8)
[2023-10-10 09:29] VITALS: O2SAT 97
[2023-10-10 09:41] LABS: Bacteria Rare HPF (Negative); C & S Indicated? No; Casts Negative LPF (Negative); Crystals Negative HPF (Negative); Epithelial Cells Rare HPF (Negative); Mucus Negative (Negative); Other Cells Negative (Negative); RBC 0-2 HPF (0-2); WBC 0-2 HPF (0-5)
[2023-10-10 09:42] LABS: Abs Immature Grans 0.04 10^3/uL (0.0-0.06); Absolute Basophil Count 0.02 10^3/uL (0.0-0.2); Absolute Lymphocyte Count 2.59 10^3/uL (1.2-3.4); Absolute Monocyte Count 0.53 10^3/uL (0.1-0.8); Absolute Neutrophil Count 6.64 10^3/uL (1.2-6.7); Basophils % 0.2 %; HCT 42.4 % (36.0-46.0); Immature Grans % 0.4 %; Lymphocytes % 26.4 %; MCH 30.9 pg (27.0-33.0); MCV 94 fL (80-95); MPV 11.4 fL (8.0-11.0); Monocytes % 5.4 %; Neutrophils % 67.6 %; Platelet Count 222 10^3/uL (130-400); RBC 4.53 10^6/uL (3.93-5.22); RDW 12.7 % (11.7-14.6); RDW-SD 43.9 fL; WBC 9.82 10^3/uL (4.4-10.8)
[2023-10-10 09:53] LABS: Anion Gap 7.8 mmol/L (3-11); BUN 8 mg/dL (7-18); CO2 29.2 mmol/L (21.0-32.0); CREATININE 0.8 mg/dL (0.55-1.02); Calcium 9.3 mg/dL (8.5-10.1); Chloride 103 mmol/L (98-107); Estimated GFR 102.86 (mL/min/1.73m2); Glucose 93 mg/dL (74-106); HCG Quant, Pregnancy 19 mIU/mL (1-3); Potassium 3.5 mmol/L (3.5-5.1); Sodium 140 mmol/L (136-145)
[2023-10-10] MEDS: Normal Saline 1,000 ML 1000 ML IV (10:15)
[2023-10-10] MEDS: Metoclopramide 10 MG/2 ML VIAL IVP (10:15)
[2023-10-10 11:54] VITALS: BP 109/68; PULSE 85; RESP 18; O2SAT 98
== END 2023-10-10 11:55 | disposition home or self-care (01) ==
PROVIDERS: Emergency Provider Registered Nurse Emergency; PCP Nurse Practitioner Family
DX: O99.891 Other specified diseases and conditions complicating pregnancy (principal); R10.9 Unspecified abdominal pain; Z3A.01 Less than 8 weeks gestation of pregnancy
CPT/HCPCS: 36415; 76770; 80048; 81025; 96361; 96365; 96375; 99285; 76830; 76856; 81003; 81015; 84702; 85025; 99284; J0131; J2765

== ENCOUNTER 2023-10-12 04:01 | Outpatient (CLI) | payer MEDICAID, SELFPAY ==
[2023-10-12 08:57] LABS: HCG Quant, Pregnancy 25 mIU/mL (1-3)
== END 2023-10-12 04:02 | disposition home or self-care (01) ==
LOC: LBO 04:04
PROVIDERS: PCP Nurse Practitioner Family; Visit Provider Advanced Practice Midwife
DX: R79.89 Other specified abnormal findings of blood chemistry (principal)
CPT/HCPCS: 36415; 84702

== ENCOUNTER 2023-10-14 09:53 | Outpatient (CLI) | payer MEDICAID, SELFPAY ==
[2023-10-14 09:54] LABS: HCG Quant, Pregnancy 34 mIU/mL (1-3)
== END 2023-10-14 09:54 | disposition home or self-care (01) ==
LOC: LBO 09:53
PROVIDERS: PCP Nurse Practitioner Family; Visit Provider Advanced Practice Midwife
DX: R79.89 Other specified abnormal findings of blood chemistry (principal)
CPT/HCPCS: 36415; 84702

== ENCOUNTER 2023-10-17 14:05 | Outpatient (CLI) | payer MEDICAID, SELFPAY ==
[2023-10-17 09:45] LABS: HCT 42.9 % (36.0-46.0); HGB 14.8 g/dL (11.2-15.7); MCH 31.6 pg (27.0-33.0); MCHC 34.5 % (32.0-36.0); MCV 92 fL (80-95); MPV 11.4 fL (8.0-11.0); Platelet Count 244 10^3/uL (130-400); RBC 4.68 10^6/uL (3.93-5.22); RDW 12.5 % (11.7-14.6); RDW-SD 42.3 fL; WBC 9.55 10^3/uL (4.4-10.8)
[2023-10-17 10:12] LABS: ALT 24 U/L (14-59); AST 17 U/L (15-37); Albumin 3.8 g/dL (3.4-5.0); Alkaline Phosphatase 77 U/L (46-116); Anion Gap 8.3 mmol/L (3-11); BUN 10 mg/dL (7-18); Bilirubin, Total 0.61 mg/dL (0.2-1.0); CO2 28.7 mmol/L (21.0-32.0); CREATININE 0.8 mg/dL (0.55-1.02); Calcium 9.2 mg/dL (8.5-10.1); Chloride 103 mmol/L (98-107); Estimated GFR 102.86 (mL/min/1.73m2); Glucose 104 mg/dL (74-106); HCG Quant, Pregnancy 176 mIU/mL (1-3); Potassium 3.7 mmol/L (3.5-5.1); Sodium 140 mmol/L (136-145); Total Protein 7.9 g/dL (6.4-8.2)
== END 2023-10-17 14:06 | disposition home or self-care (01) ==
LOC: LBO 14:05
PROVIDERS: PCP Nurse Practitioner Family; Visit Provider Advanced Practice Midwife
DX: R79.89 Other specified abnormal findings of blood chemistry (principal)
CPT/HCPCS: 36415; 80053; 85027; 84702

== ENCOUNTER 2023-10-19 14:52 | Outpatient (CLI) | payer MEDICAID, SELFPAY ==
[2023-10-19 17:07] LABS: HCG Quant, Pregnancy 428 mIU/mL (1-3)
== END 2023-10-19 14:53 | disposition home or self-care (01) ==
LOC: LBO 14:53
PROVIDERS: PCP Nurse Practitioner Family; Visit Provider Obstetrics & Gynecology Gynecology
DX: R79.89 Other specified abnormal findings of blood chemistry (principal)
CPT/HCPCS: 36415; 84702

== ENCOUNTER 2023-11-24 15:01 | Outpatient (CLI) | payer MEDICAID, SELFPAY ==
--- NOTE | 2023-11-24 15:05 | DI.US_ITS ---
Exam(s) US OB 1ST TRIMESTER EXAM: US OB 1ST TRIMESTER CLINICAL HISTORY: viability, location, inconclusive viability, O36.80x0. TECHNIQUE: First trimester obstetrical ultrasound was performed. COMPARISON: US POCUS EXAM from 11/10/2023 US POCUS EXAM from 11/24/2023 FINDINGS: Uterus: There is no evidence of viable intrauterine gestation. Instead there is an intra endometrial mass structure which is hyperechoic and multi cystic consistent with probable molar . Maternal ovaries: Both maternal ovaries appear unremarkable. There are no extraovarian adnexal masses There is no fluid in the cul-de-sac and adnexal regions. IMPRESSION:: No evidence of viable intrauterine gestation. Molar evident No abnormal adnexal masses There is no free fluid evident in the cul-de-sac. Discussed by phone with provider following completion of this study 11/24/2023 DATA REPOSITORY:
== END 2023-11-24 15:21 ==
LOC: DI 15:06
PROVIDERS: PCP Nurse Practitioner Family; Visit Provider Obstetrics & Gynecology
DX: O36.80X0 Pregnancy with inconclusive fetal viability, not applicable or unspecified (principal)
CPT/HCPCS: 76801

== ENCOUNTER 2023-11-24 15:43 | Outpatient (CLI) | payer MEDICAID, SELFPAY ==
[2023-11-24 15:53] LABS: Abs Immature Grans 0.06 10^3/uL (0.0-0.06); Absolute Basophil Count 0.03 10^3/uL (0.0-0.2); Absolute Lymphocyte Count 2.22 10^3/uL (1.2-3.4); Absolute Monocyte Count 0.74 10^3/uL (0.1-0.8); Absolute Neutrophil Count 8.04 10^3/uL (1.2-6.7); Basophils % 0.3 %; HGB 14.3 g/dL (11.2-15.7); Immature Grans % 0.5 %; MCH 31.1 pg (27.0-33.0); MCV 91 fL (80-95); Monocytes % 6.7 %; Neutrophils % 72.5 %; Platelet Count 229 10^3/uL (130-400); RDW 12.1 % (11.7-14.6); RDW-SD 40.4 fL; WBC 11.09 10^3/uL (4.4-10.8)
[2023-11-24 16:56] LABS: ALT 20 U/L (14-59); AST 15 U/L (15-37); Albumin 3.6 g/dL (3.4-5.0); Alkaline Phosphatase 89 U/L (46-116); BUN 8 mg/dL (7-18); Bilirubin, Total 0.59 mg/dL (0.2-1.0); CREATININE 0.8 mg/dL (0.55-1.02); Chloride 101 mmol/L (98-107); Estimated GFR 102.86 (mL/min/1.73m2); Glucose 97 mg/dL (74-106); Potassium 3.5 mmol/L (3.5-5.1); Sodium 138 mmol/L (136-145)
[2023-11-24 16:58] LABS: HCG Quant, Pregnancy 17919 mIU/mL (1-3)
== END 2023-11-24 15:44 | disposition home or self-care (01) ==
LOC: LBO 15:44
PROVIDERS: PCP Nurse Practitioner Family; Visit Provider Obstetrics & Gynecology
DX: O02.0 Blighted ovum and nonhydatidiform mole (principal)
CPT/HCPCS: 36415; 80053; 86850; 86900; 86901; 84702; 85025; 86870

== ENCOUNTER 2023-11-27 14:01 | Emergency (ER) | payer MEDICAID, SELFPAY ==
[2023-11-27] VITALS (98 sets, daily range): BP systolic 78–126; BP diastolic 31–88; PULSE 65–100; RESP 10–30; TEMP 36.8; O2SAT 95–100
--- NOTE | 2023-11-27 14:16 | W.ED.GENAD ---
Discharge Plan Disposition Patient Disposition: Transfer-Acute Inpatient Care Specific Acute Inpt Facility: [facility] Condition: Stable Discharge Details Chief Complaint: ASSEMBLY DEPARTMENT SUPERVISOR Clinical Impression: Vaginal bleeding, Molar Primary Care Provider: Chuck Jesus ED Provider: Terrell Arenas Home Meds and New Rx's Prescriptions: No Action PNV 11-iron fum-folic acid-om3 28 mg iron-1 mg -200 mg capsule 1 cap PO DAILY metoclopramide HCl [Reglan] 5 mg tablet 5 mg PO QACHS PRN (Reason: nausea and vomiting) Qty: 14 0RF Rx Instructions: Please take 1 tablet before meals and at bedtime no more than 4 times daily as needed. HPI General Date/Time Provider Initiated Documentation: 11/27/23 14:04. HPI Narrative: 28-year-old female G4, P3 approximately 10 weeks gestation, known molar , with referral to [facility] for tertiary care D&C, presents with profuse vaginal bleeding that began shortly before arrival, associated with lower pelvic discomfort Related Data Home Medications ?Medication ?Instructions ?Recorded ?Confirmed metoclopramide HCl 5 mg tablet 5 mg PO QACHS PRN nausea and 10/10/23 11/27/23 (Reglan) vomiting #14 tabs [id number] fum 28 mg 1 cap PO DAILY 11/10/23 11/27/23 iron-folic acid 1 mg-omg3 200 mg capsule Previous Rx's ?Medication ?Instructions ?Recorded metoclopramide HCl 5 mg tablet 5 mg PO QACHS PRN nausea and 10/10/23 (Reglan) vomiting #14 tabs Allergies Allergy/AdvReac Type Severity Reaction Status Date / Time cinnamon (Cinnamon) Allergy Severe Anaphylaxsi Unverified 11/24/23 13:44 s latex Allergy Severe RASH ALL Unverified 11/24/23 13:44 OVER BODY General Stated Complaint: ASSEMBLY DEPARTMENT SUPERVISOR ARELI: 2 Exam Narrative Exam Narrative: Tearful anxious alert interactive Moist mucous membranes tongue secretions Conjunctiva Normal heart sounds no murmurs rubs or gallops Lungs clear bilaterally no wheezes rales or rhonchi Abdomen soft nontender nondistended nonperitoneal Normal external genitalia, scant dark venous oozing at introitus Warm well-perfused extremities, good capillary refill less than 2 seconds Alert oriented moving all extremities without deficit Course Vital Signs Vital signs: Pain Level 9 11/27/23 14:07 Medical Decision Making 28-year-old female at approximately 10 weeks gestation with known molar , has referral for tertiary care D&C at [facility] given high risk, presents with vaginal bleeding that began shortly before arrival, noted to be tachycardic upon arrival to the 110s although normotensive maintaining mental status with warm well-perfused extremities pink conjunctiva moist mucous membranes and no respiratory distress, placed on monitor IV access obtained, basic labs CBC CMP type and screen PT/INR hCG have been ordered, NS and acetaminophen as well as 1 g of TXA been administered, will touch base with [facility] ASSEMBLY DEPARTMENT SUPERVISOR to arrange for D&C, likely miscarriage lower suspicion for ectopic uterine rupture placenta accreta or placenta previa given history physical and prior ultrasound. 15: 30 patient resting comfortably heart rate greatly improved, last blood pressure 110 systolic, vaginal bleeding has ceased. I was able to contact Dr. Cohen of [employer]SEM[employer] DEPARTMENT SUPERVISOR [facility] who is excepted patient for ED to ED transfer. Will arrange transportation via ambulance. Patient in agreements with plan, remains hemodynamically stable Quality:SDOH Health Related Social Needs: No Data to Display PFSH All Active Problems (Updated 11/27/23 @ 15:31 by Terrell Arenas MD) Molar (Acute) Vaginal bleeding (Acute) Molar (Acute) with inconclusive viability (Acute) (Acute 04/20/12) 11/10/23. Indeterminate viability. Two gestational sacs, no pole. Recurrent urinary tract infection (Acute 01/15/00) Anxiety (Chronic 09/12/13) BMI 30.0-30.9,adult (Acute) Gastroesophageal reflux disease (Acute) Headache (Acute) Medical History Pyelonephritis (04/20/12) Varicella Umbilical hernia (11/07/96) Recurrent urinary tract infection (01/15/00) Constipation ASCUS with positive high risk HPV KAREN 12/23/18 Repeat PAP PP Pyelonephritis affecting (03/09/15) 03/09/15 Admitted @ 11w EGA. Rx with Augmentin x10d then daily Amoxacilin for remainder of Pyelonephritis 03/2015 L sided @ 11w EGA. Ecoli Hx: UTI (urinary tract infection) 2010 Pyleonephritis 2013 Rx during 2016 1st trimester pyleonephritis. Nl renal u/s. Family History Other Bipolar disorder mat aunt Mother Mental disorder depression Alcohol use disorder Depression Substance use disorder Father , 52 Diabetes Depression Hyperlipidemia Hypertension Substance use disorder Sister Asthma Depression Brother Alcohol use disorder Depression Substance use disorder Son No problems noted. Son No problems noted. Daughter No problems noted. Other Multiple endocrine neoplasia (MEN) type II Social History Smoking/Tobacco Use Status: Never Second Hand Exposure: Yes Smoking risk assessment performed?: Yes Alcohol Intake: never Drug use: Never Substance use type: does not use Caregiver/Support person: No Household members: significant other and children Housing: apartment Communication Needs: None Do you need help understanding health information?: Rarely Pets and animals: Yes Pets and animals: dog(s) Sexually active: Yes Do you think of yourself as: straight/heterosexual Current gender identity: female What is your relationship status?: living with partner How often do you talk on the phone with friends or family?: once per week How often do you get together with friends or relatives?: once per week How often do you attend adventist or scientology services?: decline to answer Do you belong to any clubs or organized social groups?: no Panel score (0-1 are the most socially isolated patients): 1 What type of physical activity do you participate in: aerobic and bicycling Duration: 30-45 minutes/day Frequency: 3-4 times per week Maddi/Mormon: No preference Special maddi needs: No Seatbelt use: sometimes Helmet use: Yes Helmet use: sometimes Drive intox or ride w/intox trackless trolley driver: No Do you feel safe at home: Yes Do you feel safe in your relationship?: Yes Female Reproductive History Menstrual Age of Menarche: 13 Duration of menses: 3-5 days control method: other History History 4 Para 3 Hx # Term Pregnancies 3 Multiple births 0 Hx # Pregnancies 0 Ectopic pregnancies 0 AB induced 0 Hx Number of Living Children 3 AB spontaneous 1 Past Pregnancies Del. Date GA/Weeks # Preg Succ Route Wgt Sex Labor Lgth Anesthesia Location Prov Complic 12/12/12 40 No vaginal 4479.225 g Male 32 hrs regional 10/03/15 40 No vaginal 3827.186 g Female [address] rashaad zhong 07/18/16 7 No vaginal 12/27/18 40 No vaginal 4252.428 g Male 23 hours 35 min regional Bettye Dover CNM Delivery Date: 12/12/12 Last Updated by: Bettye Dover CNM suprapubic pressure applied. Delivery Date: 10/03/15 Last Updated by: Bettye Dover CNM retained placenta, manual removal, w/ increased bleeding ? w/o pph, transfusion. meconium stained fluid. Delivery Date: 07/18/16 Last Updated by: Asaf Castro CNM w/o d&C completed at home w/o c/o. Delivery Date: 12/27/18 Last Updated by: Hilda Chiang LPN small perineal abrasion repaired with suture
[2023-11-27] MEDS: Tranexamic Acid 1,000 MG/10 ML VIAL 1000 MG IVP (14:19)
[2023-11-27] MEDS: ACETAMINOPHEN 1,000 MG/100 ML BTL 400 MG IVPB (14:19)
[2023-11-27] MEDS: Normal Saline 1,000 ML 1000 ML IV (14:20)
[2023-11-27 14:27] LABS: Abs Immature Grans 0.04 10^3/uL (0.0-0.06); Absolute Basophil Count 0.03 10^3/uL (0.0-0.2); Absolute Eosinophil Count 0.01 10^3/uL (0.0-0.7); Absolute Lymphocyte Count 4.21 10^3/uL (1.2-3.4); Absolute Monocyte Count 0.92 10^3/uL (0.1-0.8); Basophils % 0.2 %; Eosinophils % 0.1 %; HCT 41.9 % (36.0-46.0); HGB 14.4 g/dL (11.2-15.7); Immature Grans % 0.3 %; Lymphocytes % 28.5 %; MCH 31.2 pg (27.0-33.0); MCHC 34.4 % (32.0-36.0); MCV 91 fL (80-95); Monocytes % 6.2 %; Neutrophils % 64.7 %; Platelet Count 254 10^3/uL (130-400); RBC 4.62 10^6/uL (3.93-5.22); RDW-SD 39.7 fL; WBC 14.78 10^3/uL (4.4-10.8)
[2023-11-27 14:29] LABS: Absolute Neutrophil Count 9.56 10^3/uL (1.2-6.7)
[2023-11-27 14:41] LABS: PTT Activated 26.9 sec (23.6-32.8); Prothrombin Time 9.9 sec (9.1-11.1)
[2023-11-27 15:00] LABS: ALT 19 U/L (14-59); AST 21 U/L (15-37); Albumin 3.6 g/dL (3.4-5.0); Alkaline Phosphatase 86 U/L (46-116); Anion Gap 11.1 mmol/L (3-11); BUN 7 mg/dL (7-18); Bilirubin, Total 0.66 mg/dL (0.2-1.0); CO2 24.9 mmol/L (21.0-32.0); CREATININE 0.9 mg/dL (0.55-1.02); Calcium 9.3 mg/dL (8.5-10.1); Chloride 101 mmol/L (98-107); Glucose 89 mg/dL (74-106); Potassium 3.3 mmol/L (3.5-5.1); Sodium 137 mmol/L (136-145); Total Protein 8.1 g/dL (6.4-8.2)
[2023-11-27 15:08] LABS: HCG Quant, Pregnancy 15342 mIU/mL (1-3)
[2023-11-27 17:22] LABS: Bilirubin Negative (Negative); Blood Large (Negative); Clarity Cloudy (Clear); Glucose Negative (Negative); Ketones 15 mg/dL (Negative); Leukocyte Esterase Negative (Negative); Nitrite Positive (Negative); Specific Gravity 1.015 (1.005-1.025); Urobilinogen 0.2 mg/dL (Up to 0.2)
[2023-11-27 17:37] LABS: C & S Indicated? No; RBC >50 HPF (0-2)
== END 2023-11-27 18:36 | disposition short-term general hospital (02) ==
PROVIDERS: Emergency Provider Emergency Medicine; PCP Nurse Practitioner Family
DX: O02.0 Blighted ovum and nonhydatidiform mole (principal); O08.1 Delayed or excessive hemorrhage following ectopic and molar pregnancy; O99.411 Diseases of the circulatory system complicating pregnancy, first trimester; R00.0 Tachycardia, unspecified; Z3A.10 10 weeks gestation of pregnancy
CPT/HCPCS: 80053; 86850; 86900; 86901; 96374; 96375; 99284; 81003; 81015; 84702; 85025; 85610; 85730; 86870; 99283; J0131

== ENCOUNTER 2023-11-29 16:54 | Outpatient (CLI) | payer MEDICAID, SELFPAY ==
[2023-11-29 17:02] LABS: Bilirubin Negative (Negative); Blood Large (Negative); Clarity Sl Cloudy (Clear); Glucose Negative (Negative); Ketones Negative (Negative); Leukocyte Esterase Trace (Negative); Nitrite Negative (Negative); Specific Gravity >= 1.030 (1.005-1.025)
[2023-11-29 17:05] LABS: Bacteria Few HPF (Negative); Epithelial Cells Many HPF (Negative); Other Cells Negative (Negative); RBC 20-50 HPF (0-2)
[2023-11-29 17:06] LABS: C & S Indicated? No/Sq. Contamination; Casts Negative LPF (Negative); Crystals Negative HPF (Negative); Mucus Trace (Negative)
[2023-11-29 17:24] LABS: TSH (W/Ref FT4) 1.56 uIU/mL (0.36-3.74)
[2023-11-29 17:52] LABS: HCG Quant, Pregnancy 2214 mIU/mL (1-3)
== END 2023-11-29 16:55 | disposition home or self-care (01) ==
LOC: LBO 16:54
PROVIDERS: Obstetrics & Gynecology; PCP Nurse Practitioner Family; Visit Provider Student in an Organized Health Care Education/Training Program
DX: O02.0 Blighted ovum and nonhydatidiform mole (principal)
CPT/HCPCS: 36415; 81003; 81015; 84443; 84702

== ENCOUNTER 2023-12-13 16:10 | Outpatient (CLI) | payer MEDICAID, SELFPAY ==
[2023-12-13 18:00] LABS: HCG Quant, Pregnancy 14 mIU/mL (1-3)
== END 2023-12-13 16:11 | disposition home or self-care (01) ==
LOC: LBO 16:10
PROVIDERS: PCP Nurse Practitioner Family; Visit Provider Student in an Organized Health Care Education/Training Program
DX: O02.0 Blighted ovum and nonhydatidiform mole (principal)
CPT/HCPCS: 36415; 84702

== ENCOUNTER 2023-12-23 13:14 | Outpatient (CLI) | payer MEDICAID, SELFPAY ==
[2023-12-23 14:27] LABS: HCG Quant, Pregnancy 2 mIU/mL (1-3)
== END 2023-12-23 13:15 | disposition home or self-care (01) ==
LOC: LBO 13:15
PROVIDERS: PCP Nurse Practitioner Family; Visit Provider Student in an Organized Health Care Education/Training Program
DX: O02.0 Blighted ovum and nonhydatidiform mole (principal)
CPT/HCPCS: 36415; 84702

== ENCOUNTER 2023-12-30 21:44 | Outpatient (CLI) | payer MEDICAID, SELFPAY ==
[2023-12-30 17:37] LABS: HCG Quant, Pregnancy 2 mIU/mL (1-3)
== END 2023-12-30 21:45 | disposition home or self-care (01) ==
LOC: LBO 21:44
PROVIDERS: PCP Nurse Practitioner Family; Visit Provider Student in an Organized Health Care Education/Training Program
DX: O02.0 Blighted ovum and nonhydatidiform mole (principal)
CPT/HCPCS: 36415; 84702

== ENCOUNTER 2024-03-19 12:36 | Outpatient (CLI) | payer SELFPAY ==
[2024-03-19 10:52] LABS: HCG Quant, Pregnancy 1 mIU/mL (1-3)
== END 2024-03-19 12:37 | disposition home or self-care (01) ==
LOC: LBO 12:38
PROVIDERS: PCP Nurse Practitioner Family; Visit Provider Nurse Practitioner Women's Health
DX: N91.2 Amenorrhea, unspecified (principal)
CPT/HCPCS: 36415; 84702

== ENCOUNTER 2024-10-16 08:39 | Emergency (ER) | payer SELFPAY ==
[2024-10-16 08:43] VITALS: BP 142/74; PULSE 125; O2SAT 100
[2024-10-16 08:46] VITALS: BP 142/74; PULSE 125; O2SAT 100
[2024-10-16 08:58] VITALS: TEMP 37.1
[2024-10-16] MEDS: Ondansetron 4 MG/2 ML VIAL IVP (09:00)
[2024-10-16] MEDS: Lactated Ringers 1,000 ML 1000 ML IV (09:00)
--- NOTE | 2024-10-16 09:04 | ED.GENADUL_ITS ---
Discharge Plan Disposition Patient Disposition: Home Condition: Stable Discharge Details Clinical Impression: UTI (urinary tract infection) Primary Care Provider: Chuck Jesus ED Provider: Yessi Price Home Meds and New Rx's Prescriptions: New cephalexin 500 mg capsule 500 mg PO QID 9 Days Qty: 36 0RF ondansetron 4 mg tablet,disintegrating 4 mg PO Q8H PRNQty: 10 0RF No Action epinephrine 0.3 mg/0.3 mL auto-injector 0.3 mg IM Q5-15M PRN (Reason: hypersensitivity reaction) Qty: 2 3RF Rx Instructions: do not exceed 3 doses per episode Discharge Instructions Instructions: Urinary Tract Infection, Adult ED Additional Instructions: You were seen in the emergency department today for evaluation of pain when you urinate and pain in your right flank. In her department a full physical examination performed, had laboratory studies that showed some concerning findings for urinary tract infection, and for this you received antibiotics through your IV. I am starting you on an oral antibiotic, please take MEDICATION until it is gone, even if you start to feel better. Your test was negative today, and the remainder of your labs were reassuring. You have a CT scan that did not show any kidney stones but did show some changes that may indicate that you recently passed a small kidney stone. I have sent you a prescription for some nausea medication, please use it as needed to make sure that you are able to stay hydrated. Please follow-up with your primary care provider in the next few days to discuss this visit and any symptoms that change, worsen, or persist. Thank you for allowing us to be part of your care. Stand Alone Forms: Work Release HPI General Mode of arrival: ambulatory . Date/Time Provider Initiated Documentation: 10/16/24 08:44 . Limitations to Documentation: no limitations . Information obtained by: patient and old records reviewed . HPI Narrative: This is a 29-year-old female patient with a past medical history significant for GERD, anxiety, and history of pyelonephritis, presenting for evaluation of dysuria and right flank pain. The patient's dysuria started about a week ago, she states that it hurts and childress especially at the end of urination. She has not noted any hematuria but has noted a strong odor to her urine. She states that yesterday in the afternoon she began to develop right flank pain as well as suprapubic abdominal pain. She has not had any measured fever, but has felt some subjective fevers at nighttime. She has been taking Tylenol and ibuprofen for management of pain. No history of kidney stones. She did have an episode of nausea with vomiting, denies diarrhea. Uses the withdrawal method for prevention. No recent antibiotic use Related Data Home Medications ?Medication ?Instructions ?Recorded ?Confirmed epinephrine 0.3 mg/0.3 mL 0.3 mg (0.3 mL) IM Q5-15M GA N 07/18/24 10/16/24 injection, auto-injector hypersensitivity reaction #2 ea cephalexin 500 mg capsule 500 mg PO QID 9 days #36 cap s 10/16/24 ondansetron 4 mg disintegrating 4 mg PO Q8H PRN #10 ta bs 10/16/24 tablet Previous Rx's ?Medication ?Instructions ?Recorded epinephrine 0.3 mg/0.3 mL 0.3 mg (0.3 mL) IM Q5-15M GA N 07/18/24 injection, auto-injector hypersensitivity reaction #2 ea cephalexin 500 mg capsule 500 mg PO QID 9 days #36 cap s 10/16/24 ondansetron 4 mg disintegrating 4 mg PO Q8H PRN #10 ta bs 10/16/24 tablet Allergies Allergy/AdvReac Type Severity Reaction Status Date / Time cinnamon (Cinnamon) Allergy Severe Anaphylaxsi Unverified 10/16/24 08:47 s latex Allergy Severe RASH ALL Unverified 10/16/24 08:47 OVER BODY General Stated Complaint: Urinary ARELI: 3 Exam Narrative Exam Narrative: Gen: Awake and alert, in no apparent distress HEENT: Non-icteric sclera Neck: Supple Lungs: No apparent respiratory distress, normal respiratory effort. CV: Appears well perfused, heart with tachycardic rate but regular rhythm, strong distal pulses Abdomen: Non-distended, soft, tender to palpation in the suprapubic region without rigidity, rebound, or guarding. MSK: Moves 4 extremities without apparent limitation in ROM. Right CVA tenderness noted with no overlying skin changes Skin: Visualized skin without rashes, cyanosis. Neuro: Normal Gait, no obvious focal deficits or facial asymmetry. Speaks in full, clear sentences. Psych: Appropriate for situation. Course Vital Signs Vital signs: Vital Signs Pulse 125 H 10/16/24 08:43 Blood Pressure 142/74 H 10/16/24 08:43 Pulse Oximetry 100 10/16/24 08:43 Temperature 37.1 C 10/16/24 08:58 Temperature Source Oral 10/16/24 08:58 Pulse 125 H 10/16/24 08:46 Blood Pressure 142/74 H 10/16/24 08:46 Pulse Oximetry 100 10/16/24 08:46 Lab/Test Results Lab/Test Results: POC- Test(urine) Negative Medical Decision Making This is a 29-year-old female patient presenting for evaluation of dysuria and right flank pain. My differential includes but is not limited to urinary tract infection, pyelonephritis, nephrolithiasis, certainly considered ectopic , ovarian torsion, ovarian cyst. Considered appendicitis, gastroenteritis, diverticulitis, though the symptoms are more consistent with a urinary pathology. Considered metabolic electrolyte derangements, kidney injury. The patient last took ibuprofen about 1 hour prior to arrival. I will establish an IV given her tachycardia and provide her with a liter of IV fluids, Tylenol, and Zofran for nausea management. We will obtain urinalysis, urine test, and labs to include CBC, CMP, magnesium. At this time I will hold on empiric imaging given her benign abdominal examination but if the patient had hematuria we would certainly move forward with a CT renal stone protocol. -I reviewed the patient's laboratory studies, I note a very mild leukocytosis to 11.5, no anemia or thrombocytopenia. Chemistry panel reveals no significant electrolyte derangements, evidence of kidney dysfunction or liver disease. Her urinalysis has trace blood and trace leukocyte esterase, microscopy is without significant concerning findings but in the setting of the blood and leuk esterase as well as her symptoms I feel it is reasonable to provide her with antibiosis. Ceftriaxone was given intravenously and a course of cephalexin was sent to her pharmacy. The patient was sent for CT renal stone protocol, which does not show any radiopaque or obstructing stones, but does show some mild hydronephrosis on the right side which may represent a recently passed stone. This was shared with the patient. I provided the patient with a short course of Zofran to help her maintain her hydration in the outpatient environment. She has remained hemodynamically appropriate, her tachycardia has improved, and she is afebrile and I think she is an excellent candidate for trial of outpatient management. At this time, the patient has had a full medical evaluation and is safe for discharge to home. They are hemodynamically stable, ambulatory, and tolerating PO. They are understanding of the follow-up plan and return precautions. They left our facility without incident. Yessi Price MD [facility] All Active Problems (Updated 10/16/24 @ 10:26 by Yessi Price MD) UTI (urinary tract infection) (Acute) Molar (Acute) with inconclusive viability (Acute) (Acute 04/20/12) 11/10/23. Indeterminate viability. Two gestational sacs, no pole. Recurrent urinary tract infection (Acute 01/15/00) Anxiety (Chronic 09/12/13) BMI 30.0-30.9,adult (Acute) Gastroesophageal reflux disease (Acute) Headache (Acute) Medical History Pyelonephritis (04/20/12) Varicella Umbilical hernia (11/07/96) Recurrent urinary tract infection (01/15/00) Constipation ASCUS with positive high risk HPV KAREN 12/23/18 Repeat PAP PP Pyelonephritis affecting (03/09/15) 03/09/15 Admitted @ 11w EGA. Rx with Augmentin x10d then daily Amoxacilin for remainder of Pyelonephritis 03/2015 L sided @ 11w EGA. Ecoli Hx: UTI (urinary tract infection) 2010 Pyleonephritis 2012 Rx during 2015 1st trimester pyleonephritis. Nl renal u/s. Family History Other Bipolar disorder mat aunt Mother Mental disorder depression Alcohol use disorder Depression Substance use disorder Father , 52 Diabetes Depression Hyperlipidemia Hypertension Substance use disorder Sister Asthma Depression Brother Alcohol use disorder Depression Substance use disorder Son No problems noted. Son No problems noted. Daughter No problems noted. Other Multiple endocrine neoplasia (MEN) type II Social History Smoking/Tobacco Use Status: Never Second Hand Exposure: Yes Smoking risk assessment performed?: Yes Alcohol Intake: never Drug use: Never Substance use type: does not use Caregiver/Support person: No Household members: significant other and children Housing: apartment Communication Needs: None Do you need help understanding health information?: Rarely Pets and animals: Yes Pets and animals: dog(s) Sexually active: Yes Do you think of yourself as: straight/heterosexual Current gender identity: female What is your relationship status?: living with partner How often do you talk on the phone with friends or family?: once per week How often do you get together with friends or relatives?: once per week How often do you attend baptism or sabianism services?: decline to answer Do you belong to any clubs or organized social groups?: no Panel score (0-1 are the most socially isolated patients): 1 What type of physical activity do you participate in: aerobic and bicycling Duration: 30-45 minutes/day Frequency: 3-4 times per week Maddi/Confucianism: No preference Special maddi needs: No Seatbelt use: sometimes Helmet use: Yes Helmet use: sometimes Drive intox or ride w/intox truck driver teamster: No Do you feel safe at home: Yes Do you feel safe in your relationship?: Yes Female Reproductive History Menstrual Age of Menarche: 13 Duration of menses: 3-5 days control method: other History History 4 Para 3 Hx # Term Pregnancies 3 Multiple births 0 Hx # Pregnancies 0 Ectopic pregnancies 0 AB induced 0 Hx Number of Living Children 3 AB spontaneous 1 Past Pregnancies Del. Date GA/Weeks # Preg Succ Route Wgt Sex Labor Lgth Anesth esia Location [facility] 12/12/12 40 No vaginal 4479.225 g Male 32 hrs regional 10/03/15 40 No vaginal 3827.186 g Female [address] rashaad zhong 07/18/16 7 No vaginal 12/27/18 40 No vaginal 4252.428 g Male 23 hours 35 min region juana Dover CNM Delivery Date: 12/12/12 Last Updated by: Bettye Dover CNM suprapubic pressure applied. Delivery Date: 10/03/15 Last Updated by: Bettye Dover CNM retained placenta, manual removal, w/ increased bleeding ? w/o pph, transfusion. meconium stained fluid. Delivery Date: 07/18/16 Last Updated by: Asaf Castro CNM w/o d&C completed at home w/o c/o. Delivery Date: 12/27/18 Last Updated by: Hilda Chiang LPN small perineal abrasion repaired with suture
--- NOTE | 2024-10-16 09:15 | DI.CT_ITS ---
Exam(s) CT RENAL COLIC WO EXAM: CT RENAL COLIC WO CLINICAL HISTORY: R. flank pain. TECHNIQUE: Imaging Protocol: Axial computed tomography images with coronal and sagittal reformatted images were created and reviewed. COMPARISON: CT RENAL COLIC WO CONTRAST from 09/28/2014 CT CHEST FOR PULMONARY EMBOLUS from 08/18/2016 FINDINGS: Lung Bases: No acute findings. Liver: Normal density. No measurable mass. Gallbladder and biliary tract: No radiodense calculus. No biliary ductal dilation. Pancreas: No abnormal calcifications or inflammatory process. Spleen: Normal size. Kidneys: Normal size, contour and axis.No radiodense stones. The right renal pelvis and proximal ureter slightly dilated compared to the left. No obstructing stone seen. No suspicious masses seen. Adrenal glands: No mass is seen. Lymph nodes: Within normal limits. Vasculature: Abdominal aorta non-dilated. Bladder:No stones. No gross wall thickening. No evidence of mass. Bowel: No obstruction. No bowel wall thickening. The appendix is normal. Normal quantity of stool. Peritoneal cavity: No ascites.No free air. No focal collection. No mesenteric inflammatory response. Reproductive organs: Within normal limits. Bones: Unremarkable for age. Soft Tissues: Within normal limits. IMPRESSION: Slight dilatation of the right renal pelvis and proximal ureter without visible obstructing stone. This could be secondary to a recently passed stone. RADIATION DOSE DELIVERED: 811.36mGy.cm Total DLP 811.36mGy.cm Total DLP DATA REPOSITORY: All CT scans at this facility are submitted to the National Radiology Data Registry (NRDR) Dose Index Registry (DIR) with the [employer] ([employer]). RADIATION OPTIMIZATION: All CT scans at this facility use at least one of these dose optimization techniques: automated exposure control; mA and/or kV adjustment per patient size (includes targeted exams where dose is matched to clinical indication); or iterative reconstruction.
[2024-10-16 09:16] LABS: Abs Immature Grans 0.05 10^3/uL (0.0-0.06); HCT 43.0 % (36.0-46.0); HGB 14.4 g/dL (11.2-15.7); Immature Grans % 0.4 %; MCH 29.9 pg (27.0-33.0); MCHC 33.5 % (32.0-36.0); MCV 89 fL (80-95); MPV 11.3 fL (8.0-11.0); Platelet Count 273 10^3/uL (130-400); RBC 4.82 10^6/uL (3.93-5.22); RDW 12.1 % (11.7-14.6); RDW-SD 39.5 fL; WBC 11.59 10^3/uL (4.4-10.8)
[2024-10-16 09:19] LABS: Glucose Negative (Negative)
[2024-10-16] MEDS: Acetaminophen 500 MG TAB 1000 MG PO (09:33)
[2024-10-16 09:37] VITALS: BP 106/57; PULSE 94; RESP 16; O2SAT 99
[2024-10-16 09:39] LABS: ALT 25 U/L (14-59); AST 17 U/L (15-37); Albumin 3.9 g/dL (3.4-5.0); Alkaline Phosphatase 79 U/L (46-116); Anion Gap 8.1 mmol/L (3-11); BUN 11 mg/dL (7-18); Bilirubin, Total 0.5 mg/dL (0.2-1.0); CO2 25.9 mmol/L (21.0-32.0); Calcium 9.1 mg/dL (8.5-10.1); Chloride 103 mmol/L (98-107); Estimated GFR 102.22 (mL/min/1.73m2); Glucose 89 mg/dL (74-106); Magnesium 1.9 mg/dL (1.8-2.4); Potassium 3.4 mmol/L (3.5-5.1); Sodium 137 mmol/L (136-145); Total Protein 8.2 g/dL (6.4-8.2)
[2024-10-16 10:01] LABS: RBC 0-2 HPF (0-2); WBC 0-2 HPF (0-5)
[2024-10-16] MEDS: cefTRIAXone 1 GM/50 ML BAG IVPB (10:01)
[2024-10-16 10:02] LABS: C & S Indicated? No
== END 2024-10-16 10:33 | disposition home or self-care (01) ==
PROVIDERS: Emergency Provider Emergency Medicine; PCP Nurse Practitioner Family
DX: N39.0 Urinary tract infection, site not specified (principal); R30.9 Painful micturition, unspecified
CPT/HCPCS: 99284; 99283; 81025; 96375; 80053; 96361; 96365; 74176; 81003; 81015; 83735; 85025; J0696; J2405